=== PATIENT | female | born 1960 | race Caucasian/White ===

== ENCOUNTER 2016-04-14 11:08 | Emergency (ER) | payer SELFPAY ==
[~2016-04-14] VITALS: Ht 170.2 cm; Wt 69.6 kg
[~2016-04-14 11:08] MED LIST: ASPI325T45 PO; CITA20TA4 PO; LEVO-217 PO; LISI-526 PO; OXYSR15 PO; PEDICHW50 PO; PRLSR20 PO
[2016-04-14 11:20] VITALS: TEMP 36.6; Ht 170.2 cm; Wt 69.6 kg
[2016-04-14] MEDS ORDERED: FERR1TAB13 PO (11:44)
[2016-04-14] MEDS ORDERED: PRLSR20 PO (11:44)
[2016-04-14] MEDS ORDERED: LEVO50TA6 PO (11:44)
[2016-04-14] MEDS ORDERED: OPTIRAY 320 IV PRN (12:00)
[2016-04-14 12:35] LABS: ISTAT CREATININE 0.8 mg/dl (0.6-1.3); ISTAT HEMOGLOBIN 12.2 g/dl (12.0-16.0); ISTAT IONIZED CALCIUM 1.16 mmol/l (1.12-1.32)
--- NOTE | 2016-04-14 12:47 | DIAGNOSTIC IMAGING REPORT ---
CT SOFT TISSUE NECK WITH CT DOSE: 415.44 mGycm CLINICAL HISTORY: left submandibular mass TECHNIQUE: Helical images were acquired during intravenous administration of 92 cc of Optiray 320. COMPARISON STUDY: None. FINDINGS: The visualized portions of the lung apices are unremarkable. No thyroid masses are visualized. No salivary gland masses are visualized. There is a 17 mm left sided retromandibular mass, deforming the left submandibular gland. This likely represents an enlarged lymph node. There are additional prominent jugular digastric lymph nodes on the left, as well as a mildly prominent left-sided submandibular lymph node. There are no fluid collections suspicious for abscess. There is no evidence of airway compromise. No mucosal space masses are visualized. There is reflux of contrast into the left internal jugular vein. There is extensive epidural and left neck collateral flow. IMPRESSION: 1. 17 mm left-sided retromandibular mass deforming the left sublenticular gland. This likely represents an enlarged lymph node. If the patient has clinical signs and symptoms consistent with infection, then reimaging subsequent antibiotic therapy would seem reasonable. In the absence of infective symptomatology, referral for fine-needle aspiration biopsy should be considered. Electronically signed by: Irvin Willingham M.D. 04/14/2016 12:45 PM Dictated Date/Time: 04/14/2016 12:38 PM
--- NOTE | 2016-04-14 13:07 | EMERGENCY ROOM VISIT NOTE ---
History First contact with patient: 11:31 Chief Complaint: NECK PAIN Stated Complaint: LUMP ON LEFT SIDE OF NECK History of Present Illness The patient is a 55 year old female who presents to the Emergency Room with complaints of a lump under her left mandible. The patient states that she noticed it last night. She states it does not hurt unless she presses on it. The patient was a pain management today and the doctor there told her that she needed to get it checked out today. Therefore she came directly to the emergency room. The patient denies any tooth pain. The patient states she does not have any lower teeth. She even kept her dentures out today thinking it might be due to her gums being irritated. The patient denies any pain or irritation of her gums. The patient denies any pain with eating. The patient denies any redness to the area. The patient denies any other palpable lumps in the neck region. The patient denies any recent upper respiratory symptoms of cough, sore throat, ear pain or head congestion Review of Systems 10 system review was performed and was negative unless stated otherwise history of present illness. Past Medical/Surgical History Medical Problems: (1) Urinary tract infection Surgical Problems: (1) Gastric bypass status for obesity Family History No pertinent family history Social History Smoking Status: Current Every Day Smoker Alcohol Use: none Marital Status: single Occupation Status: employed Current/Historical Medications Scheduled Citalopram Hydrobromide (Citalopram Hydrobromide), 20 MG PO DAILY Ferrous Sulfate (Kp Ferrous Sulfate), 325 MG PO DAILY Levothyroxine Sodium (Levothyroxine Sodium), 50 MCG PO DAILY Lisinopril (Prinivil), 30 MG PO DAILY Omeprazole (Prilosec), 20 MG PO DAILY Oxycodone HCl (Oxycontin), 15 MG PO TID Pediatric Multiple Vitamin W/ (Flintstones Chewable), 1 TAB PO BID Scheduled PRN Aspirin (Aspirin), 325 MG PO Q4H PRN for Headache or Pain Allergies Coded Allergies: No Known Allergies (Verified , 04/14/16) Physical Exam Vital Signs Date Time Temp Pulse Resp B/P Pulse Ox O2 Delivery O2 Flow Rate FiO2 04/14/16 11:20 36.6 90 17 145/85 98 Room Air Physical Exam PHYSICAL EXAM: Vital Signs were reviewed: Temperature 36.6, blood pressure 145/ 85, pulse 90 respiratory rate 17 Reviewed Nurse's notes and agree. Oxygen saturation is 98 % on room air which is normal . GENERAL: 55-year-old female appears in no acute distress. MENTAL STATUS: Alert, oriented, coherent. EARS: Canals clear. TMs good light reflex, no erythema or fluid level noted. NOSE: Nasal mucosa without erythema or engorgement. PHARYNX no erythema, no edema noted. No exudate noted. Airway is adequate. MOUTH: Bottom teeth are all absent. Gingiva without erythema or edema. NECK: Supple, there is a tender 1.5 cm nodule in the left submandibular region which is tender to palpation. No other nodes are noted. No erythema noted. LUNGS: Clear to auscultation without wheezes rales or rhonchi. CARDIAC: Regular rate and rhythm without murmur. SKIN: No rashes noted. Medical Decision & Procedures ER Provider Diagnostic Interpretation: CT SOFT TISSUE NECK WITH CT DOSE: 415.44 mGycm CLINICAL HISTORY: left submandibular mass TECHNIQUE: Helical images were acquired during intravenous administration of 92 cc of Optiray 320. COMPARISON STUDY: None. FINDINGS: The visualized portions of the lung apices are unremarkable. No thyroid masses are visualized. No salivary gland masses are visualized. There is a 17 mm left sided retromandibular mass, deforming the left submandibular gland. This likely represents an enlarged lymph node. There are additional prominent jugular digastric lymph nodes on the left, as well as a mildly prominent left-sided submandibular lymph node. There are no fluid collections suspicious for abscess. There is no evidence of airway compromise. No mucosal space masses are visualized. There is reflux of contrast into the left internal jugular vein. There is extensive epidural and left neck collateral flow. IMPRESSION: 1. 17 mm left-sided retromandibular mass deforming the left sublenticular gland. This likely represents an enlarged lymph node. If the patient has clinical signs and symptoms consistent with infection, then reimaging subsequent antibiotic therapy would seem reasonable. In the absence of infective symptomatology, referral for fine-needle aspiration biopsy should be considered. Electronically signed by: Irvin Willingham M.D. 04/14/2016 12:45 PM Dictated Date/Time: 04/14/2016 12:38 PM Laboratory Results Test 04/14/16 12:23 Bedside Hemoglobin 12.2 g/dl (12.0-16.0) Bedside Hematocrit 36 % (37-47) Bedside Sodium 141 mEq/L (135-144) Bedside Potassium 3.6 mEq/L (3.3-5.0) Bedside Chloride 104 mEq/L (101-112) Bedside Total CO2 26 mEq/l (24-31) Anion Gap 16.0 mmol/L (16-25) Bedside Blood Urea Nitrogen 9 mg/dl (7-18) Bedside Creatinine 0.8 mg/dl (0.6-1.3) Bedside Glucose (other) 94 mg/dl (70-99) Bedside Ionized Calcium (Marguerite) 1.16 mmol/l (1.12-1.32) ED Course The patient was evaluated. I stats were obtained which were normal. The patient was therefore sent for a CT of the neck with and without IV contrast. CT was interpreted by the radiologist as above with a 17 mm mass in the left submandibular area most likely representing a lymph node but a fine-needle aspiration was recommended. The patient was informed of the findings. The patient was discharged home in stable condition. Medical Decision Differential diagnosis include blocked salivary gland, enlarged lymph node, neoplasm Impression Primary Impression: lump left submandibular region Departure Information Dispostion Home / Self-Care Condition GOOD Referrals Lelo Ramirez M.D. (PCP) Forms HOME CARE DOCUMENTATION FORM, IMPORTANT VISIT INFORMATION, WORK / SCHOOL INSTRUCTIONS Patient Instructions My [employer] [facility] Additional Instructions Try not to palpate the area. Follow-up with your family doctor to discuss further evaluation treatment. Possibly watch and wait or referral for fine- needle aspiration.
[2016-04-14 13:21] VITALS: BP 149/87; PULSE 66; O2SAT 95
== END 2016-04-14 13:21 | disposition home or self-care (01) ==
LOC: C.EDB 11:10 → C.EDC 13:21
DX: R22.0 Localized swelling, mass and lump, head (principal); F17.210 Nicotine dependence, cigarettes, uncomplicated; Z79.899 Other long term (current) drug therapy; Z98.84 Bariatric surgery status

== ENCOUNTER 2017-03-29 00:25 | Emergency (ER) | payer SELFPAY ==
[~2017-03-29] VITALS: Ht 170.2 cm; Wt 72.1 kg
[~2017-03-29 00:25] MED LIST changes: +ASPECOTC PO; -ASPI325T45 PO; -CITA20TA4 PO; +FERR1TAB13 PO; -LEVO-217 PO; -LISI-526 PO; -PEDICHW50 PO; -PRLSR20 PO
[2017-03-29 00:36] VITALS: TEMP 36.9; Ht 170.2 cm; Wt 72.1 kg
[2017-03-29] MEDS ORDERED: OXYC-737 PO (03:49)
[2017-03-29 04:37] VITALS: BP 124/71; PULSE 67; O2SAT 98
--- NOTE | 2017-03-29 06:44 | EMERGENCY ROOM VISIT NOTE ---
History First contact with patient: 00:56 Chief Complaint: FALL Stated Complaint: RIGHT HIP - LEFT LEG - LEFT KNEE - LOWER BACK PAIN History of Present Illness The patient is a 56 year old female who presents to the Emergency Room with complaints of fall twice this week. Patient says she slipped and fell. she describes the pain as aching, ranging in severity 5 out of 10 worse with movement and better with rest. It does not radiate. Patient complains of Low back pain, bilateral hip pain, left middle finger pain and left knee pain. Patient is able to ambulate. She's had a right hip replacement. She follows with orthopedics in [place]. Patient is on chronic narcotics. Patient denies head injury, neck pain, chest pain, dyspnea, abdominal pain, numbness, tingling, inability to walk, loss of bowel or bladder control, saddle anesthesia , fever, chills, drug use. Review of Systems See HPI for pertinent positives & negatives. A total of 10 systems reviewed and were otherwise negative. Past Medical/Surgical History Medical Problems: (1) Urinary tract infection Surgical Problems: (1) Gastric bypass status for obesity Hip surgery, GERD, hypothyroidism Family History No pertinent family history Social History Smoking Status: Current Every Day Smoker Alcohol Use: none Marital Status: single Occupation Status: employed Current/Historical Medications Scheduled Citalopram Hydrobromide (Citalopram Hydrobromide), 20 MG PO DAILY Ferrous Sulfate (Slow Fe), 1 TAB PO DAILY Levothyroxine Sodium (Levothyroxine Sodium), 50 MCG PO DAILY Lisinopril (Prinivil), 30 MG PO DAILY Omeprazole (Prilosec), 20 MG PO BID Oxycodone HCl (Oxycontin), 15 MG PO BID Pediatric Multiple Vitamin W/ (Flintstones Chewable), 1 TAB PO BID Scheduled PRN Oxycodone Immediate Rel Tab (Roxicodone Ir), 10 MG PO QID PRN for Pain Physical Exam Vital Signs Date Time Temp Pulse Resp B/P (MAP) Pulse Ox O2 Delivery O2 Flow Rate FiO2 03/29/17 04:37 67 16 124/71 98 03/29/17 03:46 73 16 127/70 98 Room Air 03/29/17 02:12 75 16 130/70 99 Room Air 03/29/17 00:36 36.9 101 18 145/84 96 Room Air Physical Exam PHYSICAL EXAM: VITALS: Vitals are noted on the nurse's note and reviewed by myself. Vital signs stable. GENERAL: Pleasant female ambulating without difficulties, in no acute distress, nondiaphoretic, well-developed well-nourished. SKIN: Left knee contusion. The skin was without obvious lacerations or abrasions. Capillary reflex less than 2 seconds. HEAD: Normocephalic atraumatic. EARS: External auditory canals clear, tympanic membranes pearly robertson without erythema or effusion bilaterally. No hemotympanums. No mahan sign. No mastoid tenderness. EYES: Pupils equal round and reactive to light and accommodation. Conjunctivae without injection, sclerae without icterus. Extraocular movements intact. NOSE: Patent, turbinates without inflammation or discharge. MOUTH: Mucous membranes moist. Pharynx without erythema or exudate. Uvula midline. Airway patent. Tongue does not deviate. NECK: Supple without nuchal rigidity. Cervical spine is nontender. Full range of motion of the neck without tenderness. No JVD. HEART: Regular rate and rhythm LUNGS: Clear to auscultation bilaterally without wheezes, rales or rhonchi. No dullness to percussion. No retractions or accessory muscle use. No chest wall tenderness. ABDOMEN: Positive bowel sounds x 4. Normal tympanic percussion. Soft, nontender, without masses or organomegaly. No guarding or rebound tenderness. MUSCULOSKELETAL: No tenderness of the thoracic spine. Lumbar spinal tenderness without step-offs. No tenderness with pelvic rocking. Bilateral hips minimally tender to palpation with full range of motion. Left middle finger minimally tender to palpation diffusely without localized pain. Left knee minimally tender to palpation with full range of motion. Full range of motion without tenderness to palpation in all other extremities. Normal gait. Strength 5/5 throughout. NEURO: Patient was alert and oriented to person place and time. Normal sensation to light and sharp touch. No focal neurological deficits. Medical Decision & Procedures ED Course Prior records/ancillary studies reviewed. Triage Nursing notes reviewed. The patient's history was concerning for traumatic injury Differential diagnosis: Etiologies such as fracture, dislocation, intra-abdominal, pneumothorax, intrathoracic , intracranial, neurologic, as well as other traumatic pathologies were entertained. Physical examination findings: As above. The patients vitals were stable. ER treatment provided: Ice pack On reassessment the patient felt better. Vital signs were stable. Diagnostic interpretation by me: Imaging studies: Finger x-ray with no acute fracture, dislocation or effusion per my interpretation Knee x-ray with no acute fracture consultation or effusion per my interpretation Pelvis with bilateral hips concerning for possible left acetabular fracture so further imaging was ordered per my interpretation CT of the L-spine and pelvis were reviewed and read by stat radiology and negative for acute fracture This appears to be consistent with fall with multiple contusions without fracture. Patient is advised follow-up orthopedics in a few days or here in the ER sooner for severe pain, numbness, tingling, inability to walk, worsening signs or symptoms or as needed. Patient ambulated out of the ER without difficulties. She is well-appearing. She did not have acute abdomen on exam. No other injuries were noted. By the evaluation outlined above emergent etiologies such as fracture, dislocation, intra-abdominal, pneumothorax, pulmonary contusion, hemothorax, intracranial, neurologic,as well as others were deemed relatively unlikely. The pt informed about the findings as listed above. All questions were answered and pleased with the treatment. Return instructions were outlined and the patient was discharged in stable condition. Referral: The patient was referred to family and orthopedics for follow-up in 2 to 3 days for a recheck of the current condition. Case reviewed with my attending The chart was completed utilizing [employer] Speech voice recognition software. Grammatical errors, random word insertions, pronoun errors, and incomplete sentences are an occassional consequence of this system due to software limitations, ambient noise, and hardware issues. Any formal questions or concerns about the content, text, or information contained within the body of this dictation should be directly addressed to the physician training and development assistant for clarification. Medical Decision As above Medication Reconcilliation Current Medication List: was personally reviewed by me Blood Pressure Screening Patient's blood pressure: Normal blood pressure Impression Primary Impression: Left knee pain Additional Impressions: Finger pain, left Hip pain, bilateral Lumbar strain Fall Departure Information Dispostion Home / Self-Care Condition GOOD Forms HOME CARE DOCUMENTATION FORM, IMPORTANT VISIT INFORMATION Patient Instructions My [facility] Additional Instructions Ibuprofen(Motrin, Advil) may be used for fever or pain. Use 600mg every six hours as needed. Take with food. Avoid using more than 2400mg in a 24 hour period. Do not use 2400mg per day for more than three consecutive days without physician direction. Prolonged inappropriate use can lead to stomach upset or ulcers. This medication can be taken if you need to drive, work, or perform activities which may be dangerous when taking narcotic pain medication. (AND/OR) Acetaminophen(Tylenol) may be used for fever or pain. Use 1000mg every six hours as needed. Avoid using more than 3000mg in a 24 hour period. This medication can be taken if you need to drive, work, or perform activities which may be dangerous when taking narcotic pain medication. Ice compresses for 20 minutes at a time four times daily for 2-3 days. Rest and elevate your injury. Continue current medications. Return to the ER immediately for any numbness, tingling, severe pain, extreme swelling in the extremity or as needed. Call your Orthopedics in 3-5 days as symptoms persist to arrange follow up for your injury. Problem Qualifiers Primary Impression: Left knee pain Chronicity: acute Qualified Codes: M25.562 - Pain in left knee
--- NOTE | 2017-03-29 09:12 | DIAGNOSTIC IMAGING REPORT ---
CT SCAN OF THE LUMBAR SPINE WITHOUT IV CONTRAST CLINICAL HISTORY: Fall with low back pain. COMPARISON STUDY: Abdominal CT dated 06/15/2013. TECHNIQUE: CT scan of lumbar spine is performed from the lower thoracic spine to the sacrum. Images reviewed in the axial, sagittal, and coronal planes. IV contrast was not administered for this examination. A dose lowering technique was utilized adhering to the principles of ALARA. CT DOSE: 1478.45 mGy.cm FINDINGS: The skeletal structures appear osteopenic. There is no evidence of fracture or malalignment involving the lumbar spine. Vertebral body height and alignment are maintained. The transverse and spinous processes are intact. There is no evidence of spondylolysis. No lytic or blastic lesion is seen. Mild facet arthropathy is seen in the lower lumbar region. There is moderate disc space narrowing with vacuum phenomenon seen at L4-L5. Mild disc space narrowing is seen at the remaining lumbar levels. Tiny anterior osteophytes are seen throughout. There is no evidence of large disc herniation. Tiny disc bulges are suggested at L2-L3, L3-L4, L4-L5, and L5-S1. The visualized sacrum and bony pelvis appear intact. The paraspinous soft tissues are within normal limits. Postoperative change is noted in the stomach and small bowel. A 1.9 cm right adrenal nodule meets CT criteria for a fat-containing adenoma. IMPRESSION: 1. No acute bony abnormality is seen involving the lumbar spine. 2. Osteopenia and mild spondylotic change as above. Dictated: 03/29/2017 8:15 AM Transcribed: 03/29/2017 9:12 AM Cindy Electronically signed by: Alfredo Mendiola M.D. 03/29/2017 9:17 AM Dictated Date/Time: 03/29/2017 8:15 AM
--- NOTE | 2017-03-29 09:14 | DIAGNOSTIC IMAGING REPORT ---
CT SCAN OF THE BONY PELVIS WITHOUT IV CONTRAST CLINICAL HISTORY: Fall. Bilateral hip pain. COMPARISON STUDY: Pelvic CT dated 12/19/2015. TECHNIQUE: CT scan of the bony pelvis is performed from the pelvic inlet to the proximal femora. Images reviewed in the axial, sagittal, and coronal planes. IV contrast was not administered for this examination. The examination is degraded by streak artifact from a right hip arthroplasty. A dose lowering technique was utilized adhering to the principles of ALARA. FINDINGS: The skeletal structures are osteopenic. No fracture is seen involving the hips or bony pelvis. Mild spondylotic change is noted in the lower lumbar spine. A right hip arthroplasty is in place. Mild arthritic change is seen in the left hip. The sacroiliac joints appear maintained. A bone island is incidentally noted in the right iliac wing. No destructive osseous lesion is identified. The regional musculature is normal and symmetric. There is contusion with a 2.0 cm hematoma identified in the subcutaneous fat overlying the left hip. This is best seen on image 202. Mild contusion is also suggested overlying the right hip. The bladder is normal as visualized. The uterus is surgically absent. The imaged bowel loops are normal in caliber. No free fluid is seen in the pelvis. A ventral hernia contains a nonobstructed loop of small bowel. IMPRESSION: 1. No fracture is identified involving the hips or bony pelvis. 2. Contusion and a small subcutaneous soft tissue hematoma is seen overlying the left hip. 3. A right hip arthroplasty is in near-anatomic alignment. 4. There is a ventral hernia which contains a nonobstructed segment of small bowel. 5. Additional findings as above. Dictated: 03/29/2017 8:29 AM Transcribed: 03/29/2017 9:14 AM Cindy Electronically signed by: Alfredo Mendiola M.D. 03/29/2017 9:19 AM Dictated Date/Time: 03/29/2017 8:29 AM
--- NOTE | 2017-03-29 10:11 | DIAGNOSTIC IMAGING REPORT ---
SINGLE VIEW PELVIS; 2 VIEWS LEFT HIP; 2 VIEWS RIGHT HIP CLINICAL HISTORY: Fall with hip pain. FINDINGS: An AP view of the pelvis with AP and frog-leg views of the right and left hips are correlated with pelvic CT dated 12/19/2015. The skeletal structures are osteopenic. No fracture is identified involving the hips or bony pelvis. A right hip arthroplasty is in near-anatomic alignment. At least 3 cortical lag screw transfix the acetabular cup. No periprosthetic lucency is identified. Mild to moderate arthritic change and joint space narrowing seen in left hip. Minimal sclerotic change is noted in the right sacroiliac joint. Lumbosacral spondylosis is partially imaged. The overlying soft tissues are within normal limits. The visualized bowel loops are normal in caliber. IMPRESSION: There is no radiographic evidence of fracture involving the hips or bony pelvis. Electronically signed by: Alfredo Mendiola M.D. 03/29/2017 10:10 AM Dictated Date/Time: 03/29/2017 10:08 AM
--- NOTE | 2017-03-29 10:20 | DIAGNOSTIC IMAGING REPORT ---
LEFT KNEE 3 VIEWS CLINICAL HISTORY: Fall with left knee pain. FINDINGS: AP, crosstable lateral, and sunrise views of the left knee are obtained. No prior studies are available for comparison at the time of dictation. The skeletal structures are well mineralized. No fracture is seen. There is mild to moderate degenerative joint space narrowing seen in the medial compartment. Only minimal narrowing is present in the lateral and patellofemoral compartments. There are tiny marginal osteophytes in a superior patellar enthesophyte. An osteochondroma arises from the medial aspect of the tibial plateau. There is no joint effusion. The overlying soft tissues are within normal limits. IMPRESSION: 1. Mild arthritic change as above. No acute bony abnormality is seen. 2. An osteochondroma arises from the medial tibial plateau. Electronically signed by: Alfredo Mendiola M.D. 03/29/2017 10:19 AM Dictated Date/Time: 03/29/2017 10:17 AM
--- NOTE | 2017-03-29 10:22 | DIAGNOSTIC IMAGING REPORT ---
LEFT THIRD FINGER 3 VIEWS CLINICAL HISTORY: Fall with third finger pain. FINDINGS: 3 views of the left third finger are obtained. No prior studies are available for comparison at the time of dictation. The skeletal structures are well mineralized. No fracture is identified in the left third finger. The metacarpophalangeal and interphalangeal joints appear maintained. The overlying soft tissues are within normal limits. IMPRESSION: No acute bony abnormality is seen in the left third finger. Electronically signed by: Alfredo Mendiola M.D. 03/29/2017 10:20 AM Dictated Date/Time: 03/29/2017 10:19 AM
[2017-08-06] MEDS ORDERED: PEDICHW50 PO (01:13)
[2017-08-06] MEDS ORDERED: LISI-526 PO (01:15)
[2017-08-06] MEDS ORDERED: CITA20TA4 PO (01:17)
[2017-08-06] MEDS ORDERED: FERR142T PO (03:50)
[2017-08-06] MEDS ORDERED: LEVO50TA6 PO (11:44)
[2017-08-06] MEDS ORDERED: PRLSR20 PO (11:44)
[2017-10-20] MEDS ORDERED: OXYC-737 PO (05:18)
[2017-11-25] MEDS ORDERED: SULF800T23 PO ×2 (15:24→15:30)
[2017-11-25] MEDS ORDERED: CEPH500C PO ×2 (15:24→15:30)
== END 2017-03-29 04:38 | disposition home or self-care (01) ==
LOC: C.EDB 00:27 → C.EDC 04:38
DX: M25.562 Pain in left knee (principal); M79.645 Pain in left finger(s); M25.551 Pain in right hip; M25.552 Pain in left hip; S39.012A Strain of muscle, fascia and tendon of lower back, initial encounter; W01.0XXA Fall on same level from slipping, tripping and stumbling without subsequent striking against object, initial encounter; K21.9 Gastro-esophageal reflux disease without esophagitis; E03.9 Hypothyroidism, unspecified; F17.200 Nicotine dependence, unspecified, uncomplicated; Z87.440 Personal history of urinary (tract) infections; Z96.641 Presence of right artificial hip joint; Z98.84 Bariatric surgery status; Z79.899 Other long term (current) drug therapy

== ENCOUNTER 2017-06-15 20:21 | Emergency (ER) | payer OTHER ==
[~2017-06-15] VITALS: Ht 170.2 cm; Wt 79.4 kg
[~2017-06-15 20:21] MED LIST changes: -ASPECOTC PO; +CITA20TA4 PO; +FERR142T PO; -FERR1TAB13 PO; +LEVO50TA6 PO; +LISI-526 PO; +OXYC1TAB3 PO; +PEDICHW50 PO; +PRLSR20 PO
[2017-06-15 20:26] VITALS: BP 137/85; PULSE 68; TEMP 36.7; O2SAT 94; Ht 170.2 cm; Wt 79.4 kg
[2017-06-15] MEDS ORDERED: PRED50TA PO (20:40)
[2017-06-15] MEDS ORDERED: CLOTRIMAZOLE/BETAMETHASONE CR 15 GM TUBE EXT ONE (20:45)
--- NOTE | 2017-06-15 23:40 | EMERGENCY ROOM VISIT NOTE ---
History First contact with patient: 20:29 Chief Complaint: RASH Stated Complaint: RASH History of Present Illness The patient is a 57 year old female who presents to the Emergency Room with complaints of rash on her back that has been worsening over the past 2-3 days. The patient states that she has had this rash before, about 1 month ago, and was seen at [facility]. She was given steroids at this time, which did resolve her symptoms. She states the rash has returned and is lower than it was before. The rash is not painful. She does not have fevers or chills. No known exposures to new detergents or soaps. She does not have pain or difficulty breathing. She rates her discomfort as 0/10. Review of Systems More than 10 systems were reviewed and otherwise negative with the exception of history of present illness. Past Medical/Surgical History Medical Problems: (1) Urinary tract infection Surgical Problems: (1) Gastric bypass status for obesity Family History No pertinent family history Social History Smoking Status: Never Smoker Alcohol Use: none Marital Status: single Occupation Status: employed Current/Historical Medications Scheduled Citalopram Hydrobromide (Citalopram Hydrobromide), 20 MG PO DAILY Ferrous Sulfate (Slow Fe), 1 TAB PO DAILY Levothyroxine Sodium (Levothyroxine Sodium), 50 MCG PO DAILY Lisinopril (Prinivil), 30 MG PO DAILY Omeprazole (Prilosec), 20 MG PO BID Oxycodone HCl (Oxycontin), 15 MG PO BID Pediatric Multiple Vitamin W/ (Flintstones Chewable), 1 TAB PO BID Prednisone (Prednisone), 50 MG PO DAILY Scheduled PRN Oxycodone Immediate Rel Tab (Roxicodone Ir), 10 MG PO QID PRN for Pain Physical Exam Vital Signs Date Time Temp Pulse Resp B/P (MAP) Pulse Ox O2 Delivery O2 Flow Rate FiO2 06/15/17 20:26 36.7 68 16 137/85 94 Room Air Physical Exam VITALS: Vitals are noted on the nurse's note and reviewed by myself. Vital signs stable. GENERAL: Well-developed, well-nourished, white female, who is in no acute distress and resting comfortably. Patient is cooperative with the examination. HEART: Regular rate and rhythm without murmurs gallops or rubs. LUNGS: Clear to auscultation bilaterally without wheezes, rales or rhonchi. No retractions or accessory muscle use. NEURO: Patient was alert and oriented to person place and time. CN II through XII grossly intact. SKIN: The skin was with a very small erythematous patch on the left side low back just above the left buttocks. There is a very scant amount of scaling over top this but no obvious abscess or distinct infection. No vesicles noted. Medical Decision & Procedures ED Course Physical exam and history were performed. Nursing notes, EMR, and Medication List were personally reviewed. Patient appears to have a rash on her left-sided low back. The patient is evidently had this in the past. It was steroid responsive in the past, and I will start her on a short course of steroids. Additionally I will start her on Lotrimin and have her follow with her primary care physician. The patient may need to see dermatology if this persists. She was otherwise invited back to the ER with any new, worsening, or concerning symptoms. The chart was completed utilizing [employer] Speech Voice Recognition Software. Grammatical errors, random word insertions, pronoun errors, and incomplete sentences are an occasional consequence of this system due to software limitations, ambient noise, and hardware issues. Any formal questions or concerns about the content, text, or information contained within the body of this dictation should be directly addressed to the provider for clarification. . Medical Decision Differential diagnosis: Etiologies such as contact dermatitis, viral exanthem, urticaria, allergic reaction, Stern-Man syndrome, toxic epidermal necrolysis, erythema multiforme, cellulitis, scabies, HSV, varicella, zoster, eczema, staph scalded skin syndrome, fungal infection, as well as others were entertained. Impression Primary Impression: Rash and nonspecific skin eruption Departure Information Dispostion Home / Self-Care Condition GOOD Prescriptions Prednisone (Prednisone) 50 Mg Tab 50 MG PO DAILY for 4 Days, #4 TAB Prov: Terrell Rivera PA-C 06/15/17 Forms HOME CARE DOCUMENTATION FORM, IMPORTANT VISIT INFORMATION Patient Instructions My [facility] Additional Instructions You were seen and evaluated today on an emergency basis only. This is not a substitute for, or an effort to provide, complete comprehensive medical care. It is not possible to recognize and treat all injuries or illnesses in a single emergency department visit. For this reason it is recommended that you followup with your primary care physician for ongoing care and evaluation. Take prednisone as prescribed Apply topical Lotrimin ointment 2-3 times daily for the next 2 weeks. This medication is readily available [id number]. You are welcome to return to the emergency department anytime with new, worsening, or concerning symptoms.
== END 2017-06-15 20:52 | disposition home or self-care (01) ==
LOC: C.EDB 20:22 → C.EDD 20:52
DX: R21 Rash and other nonspecific skin eruption (principal); Z87.440 Personal history of urinary (tract) infections; Z98.84 Bariatric surgery status; Z79.899 Other long term (current) drug therapy

== ENCOUNTER 2017-07-04 19:11 | Emergency (ER) | payer OTHER ==
[~2017-07-04] VITALS: Ht 170.2 cm; Wt 84.2 kg
[2017-07-04 19:14] VITALS: TEMP 36.8; Ht 170.2 cm; Wt 84.2 kg
[2017-07-04] MEDS ORDERED: CLOTRIMAZOLE/BETAMETHASONE CR 15 GM TUBE EXT STA (19:30)
[2017-07-04] MEDS ORDERED: METH4PAK PO (19:32)
[2017-07-04 20:00] VITALS: BP 134/80; PULSE 76; O2SAT 99
--- NOTE | 2017-07-08 14:28 | EMERGENCY ROOM VISIT NOTE ---
History Report prepared by Estela: Ernst Clay Under the Supervision of: Dr. Huy Vazquez M.D. First contact with patient: 19:18 Chief Complaint: RASH Stated Complaint: RASH ON BACK,BUTT,UNDER L ARM,BOTH FEET AND LEGS History of Present Illness The patient is a 57 year old female who presents to the Emergency Room with complaints of a spreading/worsening rash across her back/trunk that initially onset 3 weeks ago. The patient states that she was here in the emergency department 2.5 weeks ago for the rash that had began a few day prior. The patient states that she was given a steroid and a cream and the rash went away. The rash has now returned and is spreading. There is a pain associated with the rash that the patient describes as "bees stinging me." This pain is most prevalent under her left arm. The rash does itch. She denies any fever or shortness of breath Source of History: patient Onset: 3 weeks ago Position: back (trunk) Quality: other (Rash, Bees stinging under her left arm) Timing: worsening (spreading) Associated Symptoms: No chest pain, No SOB Review of Systems See HPI for pertinent positives & negatives. A total of 10 systems reviewed and were otherwise negative. Past Medical & Surgical Medical Problems: (1) Urinary tract infection Surgical Problems: (1) Gastric bypass status for obesity Old medical records were reviewed. Nurse's notes were reviewed and I agree with. Family History No pertinent family history Social History Smoking Status: Current Every Day Smoker Alcohol Use: none Marital Status: single Occupation Status: employed Current/Historical Medications Scheduled Citalopram Hydrobromide (Citalopram Hydrobromide), 20 MG PO DAILY Ferrous Sulfate (Slow Fe), 1 TAB PO DAILY Levothyroxine Sodium (Levothyroxine Sodium), 50 MCG PO DAILY Lisinopril (Prinivil), 30 MG PO DAILY Methylprednisolone (Medrol Dosepak), 0 PO DAILY Omeprazole (Prilosec), 20 MG PO BID Pediatric Multiple Vitamin W/ (Flintstones Chewable), 1 TAB PO BID Allergies Coded Allergies: No Known Allergies (Verified , 07/04/17) Physical Exam Vital Signs Date Time Temp Pulse Resp B/P (MAP) Pulse Ox O2 Delivery O2 Flow Rate FiO2 07/04/17 20:00 76 18 134/80 99 4/8/18 19:14 36.8 103 18 165/99 97 Room Air Physical Exam General: Non-ill appearing middle age female in no acute distress. Speaking and swallowing own secretions without difficulty. HEENT: Normal cephalic atraumatic. Pupils are equal round and reactive to light. Extraocular movements are intact. Oropharynx is pink with moist mucous membranes. No swelling of the mouth lips or tongue. Neck: Supple with a midline trachea. No meningeal signs or stiffness, no JVD or bruits. No Stridor. Chest: Clear to auscultation bilaterally. No wheezes or rhonchi. No increased work of breathing. Heart: regular rate and rhythm. Abdomen: Soft nontender, nondistended without rebound guarding or rigidity. Extremities: No cyanosis clubbing or edema. No calf tenderness or assymetry Spine/Back. Non tender to palpation. No CVA tenderness Skin: There is a faint rash on her back that is raised and palpable. There are small spots on her left armpit, non-vesicular appearing rash. There is no involvement of the mucous membrane, there is a callous on the left foot. Neurologic exam: Cranial nerves two through 12 are intact. Motor and sensation are intact and symmetrical throughout. Medical Decision & Procedures Medications Administered Medications (Trade) Dose Ordered Sig/Elsa Route Start Time Stop Time Status Last Admin Dose Admin Prednisone (PredniSONE TAB) 60 mg NOW STAT PO 07/04/17 19:29 07/04/17 19:30 DC 07/04/17 19:49 60 MG Betamethasone/ Clotrimazole (Lotrisone Crm) 1 appln ONE STAT EXT 07/04/17 19:30 07/04/17 19:31 DC 07/04/17 19:57 1 APPLN ED Course 192: Past medical records reviewed. The patient was evaluated in room C11B, and a complete history and physical examination were performed. 1928: Ordered Prednisone 60 mg PO, Lortisone Cream 1 application. 1931: After discussion with the patient she is in agreement with the treatment plan. She will be discharged home with cream and a steroid. Medical Decision Differential diagnosis includes; rash and allergic reaction. This patient comes in complaining of a rash. She has no evidence of palms and soles or mucous membranes involvement. It is not vasculitic-appearing. she has had this for a month and he gets better with prednisone appears mostly on her back. I will start her back on prednisone and gave her some cream with antifungal and steroid properties that she can use topically on small spots. I recommend she follow-up with her regular doctor and me need to get in with a septic technician. There is nothing to suggest infection or sepsis at this point. She will be discharged home. She is nothing to suggest anaphylaxis or airway involvement. She was happy to plan and discharged to home. Impression Primary Impression: Rash Scribe Attestation The scribe's documentation has been prepared under my direction and personally reviewed by me in its entirety. I confirm that the note above accurately reflects all work, treatment, procedures, and medical decision making performed by me. Departure Information Dispostion Home / Self-Care Prescriptions Methylprednisolone (MEDROL DOSEPAK) 4 Mg Deshawn 0 PO DAILY, #1 PKT Prov: Huy Vazquez M.D. 07/04/17 Referrals Lelo Ramirez M.D. (PCP) Forms HOME CARE DOCUMENTATION FORM, IMPORTANT VISIT INFORMATION, WORK / SCHOOL INSTRUCTIONS Patient Instructions My [facility] Additional Instructions Rest. Use Medrol Dosepak as directedsteroid taper May use Lotrisone isolated spots twice a day May use Benadryl or another [id number] antihistamine but be careful these can make you drowsy and do not take before drinking, driving, working Return if: worsening of symptoms, fever or chills, shortness of breath, any new problems or concerns Up with your doctor this week for recheck
== END 2017-07-04 20:02 | disposition home or self-care (01) ==
LOC: C.EDB 19:13 → C.EDC 20:02
DX: R21 Rash and other nonspecific skin eruption (principal); Z87.440 Personal history of urinary (tract) infections; Z98.84 Bariatric surgery status; E66.9 Obesity, unspecified; F17.210 Nicotine dependence, cigarettes, uncomplicated; Z79.899 Other long term (current) drug therapy

== ENCOUNTER 2017-07-14 15:11 | Emergency (ER) | payer OTHER ==
[~2017-07-14] VITALS: Ht 170.2 cm; Wt 80.4 kg
[~2017-07-14 15:11] MED LIST changes: +METH4PAK PO; -OXYC1TAB3 PO; -OXYSR15 PO
[2017-07-14 15:15] VITALS: TEMP 36.7; Ht 170.2 cm; Wt 80.4 kg
[2017-07-14] MEDS ORDERED: OXYCODONE HCL IR 5 MG TAB (IMMEDIATE RELEASE) PO STA (15:59)
[2017-07-14] MEDS ORDERED: ALBUT/IPRATROP 3MG/0.5MG NEB 3 ML VIAL INH STA (15:59)
[2017-07-14] MEDS ORDERED: IBUPROFEN 600 MG TAB PO STA (16:04)
[2017-07-14] MEDS ORDERED: CLONIDINE HCL 0.3 MG/24 HR TRANSDERM SYS TD STA (16:04)
[2017-07-14] MEDS ORDERED: LIDODERM (LIDOCAINE) PATCH 5% TD STA (16:04)
[2017-07-14] MEDS ORDERED: OPTIRAY 320 IV PRN (16:15)
--- NOTE | 2017-07-14 16:29 | DIAGNOSTIC IMAGING REPORT ---
CHEST ONE VIEW PORTABLE CLINICAL HISTORY: Shortness of breath COMPARISON STUDY: 06/15/2013 FINDINGS: The cardiac and mediastinal contours are normal. There is no evidence of focal pulmonary consolidation. There is no evidence of failure. No pleural effusions are visualized.[ IMPRESSION: No active disease in the chest. Electronically signed by: Irvin Willingham M.D. 07/14/2017 4:28 PM Dictated Date/Time: 07/14/2017 4:27 PM
[2017-07-14 16:35] LABS: BASO % 0.7 %; BASO ABS # 0.06 K/uL (0-0.2); EOS % 1.9 %; EOS ABS # 0.15 K/uL (0-0.5); HEMATOCRIT 43.2 % (37-47); HEMOGLOBIN 14.5 g/dL (12.0-16.0); IG# 0.03 K/uL (0.00-0.02); LYMPH % 30.1 %; LYMPH ABS # 2.42 K/uL (1.2-3.4); MEAN CELL VOLUME 94.5 fL (80-100); MEAN CORPUSCULAR HEMOGLOBIN 31.7 pg (25-34); MEAN CORPUSCULAR HGB CONC 33.6 g/dl (32-36); MEAN PLATELET VOLUME 9.2 fL (7.4-10.4); MONO % 12.4 %; NEUT % 54.5 %; NEUT ABS # 4.39 K/uL (1.4-6.5); PLATELET COUNT 280 K/uL (130-400); RED CELL DISTRIBUTION WIDTH CV 14.5 % (11.5-14.5); RED CELL DISTRIBUTION WIDTH SD 48.9 fL (36.4-46.3); WHITE BLOOD COUNT 8.05 K/uL (4.8-10.8)
--- NOTE | 2017-07-14 16:52 | EMERGENCY ROOM VISIT NOTE ---
History Report prepared by Estela: Felicia Esposito Under the Supervision of: Dr. Destin Preston M.D. First contact with patient: 15:42 Chief Complaint: PAIN (GENERALIZED) Stated Complaint: SEVERE PHYSICAL PAIN, EPSYCHOLOGIC ISSUES History of Present Illness The patient is a 57 year old female who presents to the Emergency Room with complaints of persistent generalized pain that began this morning. She reports that she has been experiencing back and neck pain, noting she has been getting a rash throughout her body that comes and goes. The patient notes swelling of her lymph nodes, which has been causing her neck discomfort. She states that today she had an episode of withdraw from her pain medication which she stopped taking 2 days ago, noting that she is no longer able to get any from her pain management clinic. She denies any homicidal/suicidal thoughts or ideations. Source of History: patient Onset: today Position: neck, back Quality: other (generalized pain) Timing: other (persistent) Note: Associated symptoms includes: swelling of lymph nodes causing neck discomfort and withdraw from pain medication. Denies any: homicidal/suicidal thoughts or ideations. Review of Systems See HPI for pertinent positives & negatives. A total of 10 systems reviewed and were otherwise negative. Past Medical & Surgical Medical Problems: (1) Urinary tract infection Surgical Problems: (1) Gastric bypass status for obesity Family History No pertinent family history Social History Smoking Status: Current Every Day Smoker Smokeless Tobacco Use: Unknown Alcohol Use: none Drug Use: none Marital Status: single Housing Status: lives with family Occupation Status: employed Current/Historical Medications Scheduled Citalopram Hydrobromide (Citalopram Hydrobromide), 20 MG PO DAILY Ferrous Sulfate (Slow Fe), 142 MG PO DAILY Levothyroxine Sodium (Levothyroxine Sodium), 50 MCG PO DAILY Lisinopril (Prinivil), 30 MG PO DAILY Omeprazole (Prilosec), 20 MG PO BID Pediatric Multiple Vitamin W/ (Flintstones Chewable), 1 TAB PO BID Allergies Coded Allergies: No Known Allergies (Verified , 07/04/17) Physical Exam Vital Signs Date Time Temp Pulse Resp B/P (MAP) Pulse Ox O2 Delivery O2 Flow Rate FiO2 07/14/17 18:17 79 16 122/68 94 07/14/17 16:49 91 17 138/79 95 Room Air 07/14/17 15:15 36.7 101 18 149/87 94 Room Air Physical Exam GENERAL: Awake, alert, well-appearing, in no acute distress HENT: Normocephalic, atraumatic. Oropharynx unremarkable. EYES: Normal conjunctiva. Sclera non-icteric. NECK: Supple. No nuchal rigidity. FROM. No JVD. RESPIRATORY: mild wheezes at bases. CARDIAC: Regular rate, normal rhythm. Extremities warm and well perfused. Pulses equal. ABDOMEN: Soft, non-distended. No tenderness to palpation. No rebound or guarding. No masses. RECTAL: Deferred. MUSCULOSKELETAL: Chest examination reveals no tenderness. The back is symmetrical on inspection without obvious abnormality. There is no CVA tenderness to palpation. No joint edema. LOWER EXTREMITIES: Calves are equal size bilaterally and non-tender. No edema. No discoloration. NEURO: Normal sensorium. No sensory or motor deficits noted. SKIN: No rash or jaundice noted. Medical Decision & Procedures ER Provider Diagnostic Interpretation: Radiology results as stated below per my review and radiologist interpretation: CHEST ONE VIEW PORTABLE CLINICAL HISTORY: Shortness of breath COMPARISON STUDY: 06/15/2013 FINDINGS: The cardiac and mediastinal contours are normal. There is no evidence of focal pulmonary consolidation. There is no evidence of failure. No pleural effusions are visualized.[ IMPRESSION: No active disease in the chest. Electronically signed by: Irvin Willingham M.D. 07/14/2017 4:28 PM Dictated Date/Time: 07/14/2017 4:27 PM SOFT TISSUE NECK WITH CLINICAL HISTORY: 57 years-old Female presenting with Pt c/o swollen lymph nodes. TECHNIQUE: Multidetector CT of the neck was performed after the administration of intravenous contrast. IV contrast: 95 mL of Optiray 320. A dose lowering technique was used consistent with the principles of ALARA (as low as reasonably achievable). COMPARISON: 04/14/2016 CT DOSE (mGy.cm): The estimated cumulative dose is 529.59 mGy.cm. FINDINGS: Canvas Cutter Machine topogram: Unremarkable. At the site of the previously enlarged left submandibular lymph node is now normal appearing measuring 6 mm in the short axis (series 3 image 155). No cervical lymphadenopathy. No inflammatory change. No suspicious nodular enhancement along the airway. No effacement of the valleculae or piriform sinuses. Parotid, submandibular, and thyroid glands normal. Vessels patent. Limited intracranial evaluation within normal limits. Orbits normal. Paranasal sinuses and mastoid air cells clear. Cervical spine with mild degenerative change. Lung apices clear. IMPRESSION: Resolution of the previously noted pathologically enlarged left submandibular lymph node. This was likely infectious or inflammatory in etiology. No suspicious findings on the current exam. Electronically signed by: Gregory Gaines M.D. 07/14/2017 5:55 PM Dictated Date/Time: 07/14/2017 5:52 PM Laboratory Results 07/14/17 16:14 Red Blood Count 4.57, Mean Corpuscular Volume 94.5, Mean Corpuscular Hemoglobin 31.7, Mean Corpuscular Hemoglobin Concent 33.6, Mean Platelet Volume 9.2, Neutrophils (%) (Auto) 54.5, Lymphocytes (%) (Auto) 30.1, Monocytes (%) (Auto) 12.4, Eosinophils (%) (Auto) 1.9, Basophils (%) (Auto) 0.7, Neutrophils # (Auto ) 4.39, Lymphocytes # (Auto) 2.42, Monocytes # (Auto) 1.00, Eosinophils # (Auto ) 0.15, Basophils # (Auto) 0.06 07/14/17 16:14 Test 07/14/17 16:14 White Blood Count 8.05 K/uL (4.8-10.8) Red Blood Count 4.57 M/uL (4.2-5.4) Hemoglobin 14.5 g/dL (12.0-16.0) Hematocrit 43.2 % (37-47) Mean Corpuscular Volume 94.5 fL (80-100) Mean Corpuscular Hemoglobin 31.7 pg (25-34) Mean Corpuscular Hemoglobin Concent 33.6 g/dl (32-36) Platelet Count 280 K/uL (130-400) Mean Platelet Volume 9.2 fL (7.4-10.4) Neutrophils (%) (Auto) 54.5 % Lymphocytes (%) (Auto) 30.1 % Monocytes (%) (Auto) 12.4 % Eosinophils (%) (Auto) 1.9 % Basophils (%) (Auto) 0.7 % Neutrophils # (Auto) 4.39 K/uL (1.4-6.5) Lymphocytes # (Auto) 2.42 K/uL (1.2-3.4) Monocytes # (Auto) 1.00 K/uL (0.11-0.59) Eosinophils # (Auto) 0.15 K/uL (0-0.5) Basophils # (Auto) 0.06 K/uL (0-0.2) RDW Standard Deviation 48.9 fL (36.4-46.3) RDW Coefficient of Variation 14.5 % (11.5-14.5) Immature Granulocyte % (Auto) 0.4 % Immature Granulocyte # (Auto) 0.03 K/uL (0.00-0.02) Anion Gap 2.0 mmol/L (3-11) Est Creatinine Clear Calc Drug Dose 67.3 ml/min Estimated GFR () 70.9 Estimated GFR (Non- 61.1 BUN/Creatinine Ratio 9.0 (10-20) Calcium Level 9.5 mg/dl (8.5-10.1) Total Bilirubin 0.5 mg/dl (0.2-1) Direct Bilirubin 0.1 mg/dl (0-0.2) Aspartate Amino Transf (AST/SGOT) 15 U/L (15-37) Alanine Aminotransferase (ALT/SGPT) 18 U/L (12-78) Alkaline Phosphatase 121 U/L (45-117) Total Protein 6.8 gm/dl (6.4-8.2) Albumin 3.9 gm/dl (3.4-5.0) Thyroid Stimulating Hormone (TSH) 1.490 uIu/ml (0.300-4.500) Ethyl Alcohol mg/dL < 3.0 mg/dl (0-3) Labs reviewed by ED physician. Medications Administered Medications (Trade) Dose Ordered Sig/Elsa Route Start Time Stop Time Status Last Admin Dose Admin Albuterol/ Ipratropium (Duoneb) 3 ml NOW STAT INH 07/14/17 15:59 07/14/17 16:02 DC 07/14/17 16:12 3 ML Oxycodone HCl (Roxicodone Immediate Rel Tab) 10 mg NOW STAT PO 07/14/17 15:59 07/14/17 16:02 DC 07/14/17 16:13 10 MG Clonidine HCl (Lejeuiin-Cav-5 0.3mg/24hr Patch) 1 patch NOW STAT TD 07/14/17 16:04 07/14/17 16:06 DC 07/14/17 16:14 1 PATCH Lidocaine (Lidoderm Patch 5%) 1 patch NOW STAT TD 07/14/17 16:04 07/14/17 16:06 DC 07/14/17 16:13 1 PATCH Ibuprofen (Motrin Tab) 600 mg NOW STAT PO 07/14/17 16:04 07/14/17 16:06 DC 07/14/17 16:13 600 MG ED Course 1541: Past medical records reviewed. The patient was evaluated in room C7. A complete history and physical examination was performed. 1559: Ordered Oxycodone HCL 10mg PO and Duoneb 3ml INH. 1604: Ordered Ibuprofen 600mg PO, Lidocaine 1 patch, and Clonidine HCl 1 patch. 1615: Ordered Ioversol 100ml IV. 1818: Upon reexamination the patient is resting comfortably. I discussed results and treatment plan with the patient. She verbalizes agreement and understanding. The patient is ready for discharge. Medical Decision Differential diagnosis: Etiologies such as metabolic, infection, hypo/hyperglycemia, electrolyte abnormalities, cardiac sources, intracerebral event, toxicologic, neurologic, as well as others were entertained. This is a 57-year-old female who comes to emergency department with a number of complaints. Patient is complaining of lymph nodes in her neck being swollen. In addition she feels she is in withdrawal from her pain medication as she can no longer get them from her pain management clinic. I will note that the patient just had a prescription for OxyContin filled several days ago for a large number of narcotics. She was given 10 mg of oxycodone while she was here in the emergency department and was given a Lidoderm patch for pain as well as a clonidine patch for withdrawal. The CT of the patient's neck shows that her lymph nodes are actually smaller than they had been. The patient does not recall ever getting a CT of her neck previously. She was given a breathing treatment here in the emergency department with much improvement in her symptoms. I was in contact with case management to get this patient into pain management however she should probably be on the no narcotics list here in the emergency department. [place] Drug Monitoring Program Search Results: patient reviewed within database, see additional documentation Drug Monitoring Findings: Pt had (60) Oxycontin 15 mg filled on 07/02/17 Oxycodone 10 mg 06/09/17 (90) Medication Reconcilliation Current Medication List: was personally reviewed by me Blood Pressure Screening Patient's blood pressure: Normal blood pressure Blood pressure disposition: Did not require urgent referral Impression Primary Impression: Enlarged lymph nodes Scribe Attestation The scribe's documentation has been prepared under my direction and personally reviewed by me in its entirety. I confirm that the note above accurately reflects all work, treatment, procedures, and medical decision making performed by me. Departure Information Dispostion Home / Self-Care Referrals Lelo Ramirez M.D. (PCP) Forms HOME CARE DOCUMENTATION FORM, IMPORTANT VISIT INFORMATION, WORK / SCHOOL INSTRUCTIONS Patient Instructions My [facility] Additional Instructions Need follow up with Dr Ramirez's office Return if you feel suicidal or Homicidal You received narcotic or benzodiazepene medication while in the emergency room today. This is an addictive medication that may cause drowziness as well as constipation. Do not drive, operate heavy machinery, or drink alcohol under the influence of this medication. You have been examined and treated today on an emergency basis only. This is not a substitute for, or an effort to provide, complete comprehensive medical care. It is impossible to recognize and treat all injuries or illnesses in a single emergency department visit. It is therefore important that you follow up closely with Dr Ramirez. Call as soon as possible for an appointment. Thank you for your time and consideration. I look forward to speaking with you again soon. Please don't hesitate to call us if you have any questions.
[2017-07-14 16:53] LABS: ALBUMIN 3.9 gm/dl (3.4-5.0); CALCIUM 9.5 mg/dl (8.5-10.1); CREATININE 1.03 mg/dl (0.60-1.20); POTASSIUM 3.7 mmol/L (3.5-5.1)
[2017-07-14 17:04] LABS: TOTAL PROTEIN 6.8 gm/dl (6.4-8.2)
--- NOTE | 2017-07-14 17:57 | DIAGNOSTIC IMAGING REPORT ---
SOFT TISSUE NECK WITH CLINICAL HISTORY: 57 years-old Female presenting with Pt c/o swollen lymph nodes. TECHNIQUE: Multidetector CT of the neck was performed after the administration of intravenous contrast. IV contrast: 95 mL of Optiray 320. A dose lowering technique was used consistent with the principles of ALARA (as low as reasonably achievable). COMPARISON: 04/14/2016 CT DOSE (mGy.cm): The estimated cumulative dose is 529.59 mGy.cm. FINDINGS: Materials Intern topogram: Unremarkable. At the site of the previously enlarged left submandibular lymph node is now normal appearing measuring 6 mm in the short axis (series 3 image 155). No cervical lymphadenopathy. No inflammatory change. No suspicious nodular enhancement along the airway. No effacement of the valleculae or piriform sinuses. Parotid, submandibular, and thyroid glands normal. Vessels patent. Limited intracranial evaluation within normal limits. Orbits normal. Paranasal sinuses and mastoid air cells clear. Cervical spine with mild degenerative change. Lung apices clear. IMPRESSION: Resolution of the previously noted pathologically enlarged left submandibular lymph node. This was likely infectious or inflammatory in etiology. No suspicious findings on the current exam. Electronically signed by: Gregory Gaines M.D. 07/14/2017 5:55 PM Dictated Date/Time: 07/14/2017 5:52 PM
[2017-07-14 18:17] VITALS: BP 122/68; PULSE 79; O2SAT 94
== END 2017-07-14 18:28 | disposition home or self-care (01) ==
LOC: C.EDB 15:14 → C.EDC 18:28
DX: R59.9 Enlarged lymph nodes, unspecified (principal); F17.200 Nicotine dependence, unspecified, uncomplicated

== ENCOUNTER 2017-07-18 10:26 | Emergency (ER) | payer OTHER ==
[~2017-07-18] VITALS: Ht 170.2 cm; Wt 79.9 kg
[~2017-07-18 10:26] MED LIST changes: -METH4PAK PO
[2017-07-18 10:33] VITALS: Ht 170.2 cm; Wt 79.9 kg
[2017-07-18] MEDS ORDERED: METOCLOPRAMIDE HCL INJ 5 MG/ML 2 ML VIAL IV. STA (11:26)
[2017-07-18] MEDS ORDERED: GI COCKTAIL PO STA (11:26)
[2017-07-18] MEDS ORDERED: SODIUM CHLORIDE 0.9% 500ML 500 ML IV STA (11:26)
--- NOTE | 2017-07-18 11:28 | EMERGENCY ROOM VISIT NOTE ---
History Report prepared by Estela: Linda Asencio Under the Supervision of: Dr. Wes Whitfield M.D. 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 Negative urinary symptoms. She describes her pain as burning and dull, but sharp when she eats. Eating is a worsening factor. She reports she always drinks Diet Mountain Dew and is a current smoker. 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 A total of ten systems were reviewed and were otherwise negative. Past Medical & Surgical Medical Problems: (1) Urinary tract infection Surgical Problems: (1) Gastric bypass status for obesity Family History No pertinent family history Social History Smoking Status: Current Every Day Smoker Alcohol Use: none Drug Use: none Marital Status: single Housing Status: lives with family Occupation Status: employed Current/Historical Medications Scheduled Citalopram Hydrobromide (Citalopram Hydrobromide), 20 MG PO DAILY Ferrous Sulfate (Slow Fe), 142 MG PO DAILY Levothyroxine Sodium (Levothyroxine Sodium), 50 MCG PO DAILY Lisinopril (Prinivil), 30 MG PO DAILY Omeprazole (Prilosec), 20 MG PO BID Pediatric Multiple Vitamin W/ (Flintstones Chewable), 1 TAB PO BID Scheduled PRN Ondansetron Hcl (Zofran), 4 MG PO Q8H PRN for Nausea Allergies Coded Allergies: No Known Allergies (Verified , 07/18/17) Physical Exam Vital Signs Date Time Temp Pulse Resp B/P (MAP) Pulse Ox O2 Delivery O2 Flow Rate FiO2 07/18/17 16:09 76 18 134/82 98 Room Air 07/18/17 14:34 64 15 133/82 94 Room Air 07/18/17 13:39 66 14 129/83 95 Room Air 07/18/17 12:16 69 12 134/79 93 Room Air 07/18/17 12:10 66 07/18/17 11:25 68 16 147/82 96 07/18/17 10:33 36.7 78 18 142/93 96 Room Air Physical Exam GENERAL: Awake, alert, well-appearing, NAD. Wearing glasses. HENT: Normocephalic, atraumatic. Edentulous. EYES: Normal conjunctiva. Sclera non-icteric. NECK: Supple. No nuchal rigidity. FROM. RESPIRATORY: CTAB, no rhonchi, wheezing, crackles CARDIAC: RRR, no MRG ABDOMEN: Soft, NTND, BS+. Epigastric RUQ discomfort. Negative obturators, negative psoas, negative Martin's. MSK: No chest wall TTP, no LE edema NEURO: GCS 15, CN 2-12 intact, moves all 4s on command SKIN: No rash or jaundice noted. Medical Decision & Procedures ER Provider Diagnostic Interpretation: Radiology results as stated below per my review and radiologist interpretation: KUB CLINICAL HISTORY: ABDOMINAL PAIN/GI pain COMPARISON STUDY: 07/04/2010 FINDINGS: Increased fecal load throughout the colon consistent with fecal stasis. No evidence for fecal impaction. Postoperative changes left upper quadrant. Prior right hip arthroplasty. IMPRESSION: Nonobstructive bowel pattern. Increased fecal load throughout the colon consistent with fecal stasis. The above report was generated using voice recognition software. It may contain grammatical, syntax or spelling errors. Electronically signed by: Yao Medina M.D. 07/18/2017 1:01 PM GALLBLADDER-ABD LIMITED CLINICAL HISTORY: h/o GB disease even w/ RYGB, no lap virgil, epi/RUQ pain pain. Nausea. TECHNIQUE: Ultrasound COMPARISON STUDY: 06/15/2013 FINDINGS: Normal gallbladder. Common bile duct 7 mm unchanged in the prior study. Liver is uniform. Intrahepatic ducts are unremarkable. Pancreas and right kidney are unremarkable. IMPRESSION: Negative study The above report was generated using voice recognition software. It may contain grammatical, syntax or spelling errors. Electronically signed by: Yao Medina M.D. 07/18/2017 1:37 PM Laboratory Results 07/18/17 11:54 Red Blood Count 4.43, Mean Corpuscular Volume 93.0, Mean Corpuscular Hemoglobin 31.6, Mean Corpuscular Hemoglobin Concent 34.0, Mean Platelet Volume 9.3, Neutrophils (%) (Auto) 74.6, Lymphocytes (%) (Auto) 16.2, Monocytes (%) (Auto) 6.9, Eosinophils (%) (Auto) 1.3, Basophils (%) (Auto) 0.7, Neutrophils # (Auto) 5.16, Lymphocytes # (Auto) 1.12, Monocytes # (Auto) 0.48, Eosinophils # (Auto) 0.09, Basophils # (Auto) 0.05 07/18/17 11:54 Test 07/18/17 11:54 07/18/17 15:00 White Blood Count 6.92 K/uL (4.8-10.8) Red Blood Count 4.43 M/uL (4.2-5.4) Hemoglobin 14.0 g/dL (12.0-16.0) Hematocrit 41.2 % (37-47) Mean Corpuscular Volume 93.0 fL (80-100) Mean Corpuscular Hemoglobin 31.6 pg (25-34) Mean Corpuscular Hemoglobin Concent 34.0 g/dl (32-36) Platelet Count 214 K/uL (130-400) Mean Platelet Volume 9.3 fL (7.4-10.4) Neutrophils (%) (Auto) 74.6 % Lymphocytes (%) (Auto) 16.2 % Monocytes (%) (Auto) 6.9 % Eosinophils (%) (Auto) 1.3 % Basophils (%) (Auto) 0.7 % Neutrophils # (Auto) 5.16 K/uL (1.4-6.5) Lymphocytes # (Auto) 1.12 K/uL (1.2-3.4) Monocytes # (Auto) 0.48 K/uL (0.11-0.59) Eosinophils # (Auto) 0.09 K/uL (0-0.5) Basophils # (Auto) 0.05 K/uL (0-0.2) RDW Standard Deviation 47.3 fL (36.4-46.3) RDW Coefficient of Variation 13.9 % (11.5-14.5) Immature Granulocyte % (Auto) 0.3 % Immature Granulocyte # (Auto) 0.02 K/uL (0.00-0.02) Anion Gap 8.0 mmol/L (3-11) Est Creatinine Clear Calc Drug Dose 98.8 ml/min Estimated GFR () 113.0 Estimated GFR (Non- 97.5 BUN/Creatinine Ratio 22.1 (10-20) Calcium Level 8.8 mg/dl (8.5-10.1) Magnesium Level 1.8 mg/dl (1.8-2.4) Total Bilirubin 0.7 mg/dl (0.2-1) Direct Bilirubin 0.3 mg/dl (0-0.2) Aspartate Amino Transf (AST/SGOT) 1238 U/L (15-37) Alanine Aminotransferase (ALT/SGPT) 786 U/L (12-78) Alkaline Phosphatase 127 U/L (45-117) Total Protein 6.4 gm/dl (6.4-8.2) Albumin 3.6 gm/dl (3.4-5.0) Lipase 119 U/L (73-393) Acetaminophen Level 3 ug/ml (10-30) Laboratory results reviewed by me Medications Administered Medications (Trade) Dose Ordered Sig/Elsa Route Start Time Stop Time Status Last Admin Dose Admin Metoclopramide HCl (Reglan Inj) 10 mg NOW STAT IV. 07/18/17 11:26 07/18/17 11:29 DC 07/18/17 12:01 10 MG Sodium Chloride 500 ml @ 999 mls/hr Q31M STAT IV 07/18/17 11:26 07/18/17 11:56 DC 07/18/17 12:09 999 MLS/HR Lidocaine HCl (Viscous Lidocaine 2% Soln) 20 ml STK-MED ONCE .ROUTE 07/18/17 11:33 07/18/17 11:34 DC 07/18/17 12:11 10 ML Al Hydroxide/Mg Hydroxide (Maalox Susp) 30 ml STK-MED ONCE .ROUTE 07/18/17 11:33 07/18/17 11:34 DC 07/18/17 12:10 30 ML Ondansetron HCl (Zofran Inj) 4 mg NOW STAT IV 07/18/17 14:53 07/18/17 14:54 DC 07/18/17 15:00 4 MG ED Course 1117: The patient was evaluated in room C4. A complete history and physical exam was performed. 1355: I checked on the patient at this time. She is feeling better. 1412: I discussed the patient's case with Rishabh Orr. He recommended checking her Tylenol level and follow up in 2 days for a follow up liver function test. 1558: I checked on the patient at this time. She is feeling better. 1628: I reevaluated the patient. Discussed results and discharge instructions: She verbalized understanding and agreement. The patient is ready for discharge. 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 Negative urinary symptoms. Nursing notes reviewed. Ancillary studies and prior records reviewed. Differential diagnosis: Etiologies such as appendicitis, diverticulitis, PUD, biliary pathology, UTI, pancreatitis, obstruction, mesenteric ischemia, aortic pathology, infections, inflammatory bowel disease, renal colic, as well as others were entertained. Patient was seen and evaluated the bedside. Patient does have a prior history of gastric bypass. Patient also states that she did not have an appendectomy or cholecystectomy. Patient has complained of nausea and inability to tolerate p.o. over the last several days. Patient did have several episodes of vomiting but has not vomited in the last 2 days. Patient has not had a recent bowel movement she is passing gas. Patient has not seen a postie in some time. Of note the patient does smoke. She was counseled on smoking cessation. Patient had blood work completed along with a KUB and gallbladder ultrasound. Patient's gallbladder ultrasound showed a 7 mm CBD but no acute concerns for choledocho lithiasis, cholelithiasis, or cholecystitis. Patient's white blood cell count within normal limits. Patient did have gross elevations in LFTs. I did speak with the on-call call postie did state that while it may be viral in nature a Tylenol level would be of benefit. A Tylenol level was checked and was low. Less likely an acute or chronic Tylenol ingestion. This is most likely viral given the patient's history. Patient was given an order to have repeat blood work completed in 2 days to get a general trend. Patient was also given medications for home and told to continue a bland diet as well as avoid smoking and Mountain Dew use. Patient was deemed suitable for outpatient follow-up and treatment at this time. The patient was clinically feeling improved and was able tolerate p.o. Patient was given strict follow-up , discharge, and return precautions. All questions were answered. Patient was deemed suitable for outpatient follow-up at this time. Patient agreed with the plan of care and was safely discharged home. Medication Reconcilliation Current Medication List: was personally reviewed by me Blood Pressure Screening Patient's blood pressure: Elevated blood pressure Blood pressure disposition: Elevated BP felt to be situational Consults Time Called: 1410 Consulting Physician: Rishabh Orr GI Returned Call: 1412 He recommended checking her Tylenol level and follow up in 2 days for a follow up liver function test. Impression Primary Impression: Elevated liver enzymes Additional Impressions: Abdominal pain Encounter for smoking cessation counseling Scribe Attestation The scribe's documentation has been prepared under my direction and personally reviewed by me in its entirety. I confirm that the note above accurately reflects all work, treatment, procedures, and medical decision making performed by me. Departure Information Dispostion Home / Self-Care Prescriptions Ondansetron Hcl (ZOFRAN) 4 Mg Tab 4 MG PO Q8H Y for Nausea, #12 TAB Prov: Wes Whitfield M.D. 07/18/17 Referrals Lelo Ramirez M.D. (PCP) Forms HOME CARE DOCUMENTATION FORM, IMPORTANT VISIT INFORMATION Patient Instructions Abdominal Pain, ED Diet Williams, ED Smoking Cessation, [facility] Additional Instructions Please return to the emergency department if you have worsening or recurrent symptoms not amenable to at-home treatment. Please call for a follow-up appointment with her primary care physician. Please take your medications as prescribed. If you have other concerns and/or complaints please feel free to also call your primary care physician's office or return the ED for further evaluation, management, and treatment. Please avoid any alcohol or Tylenol. Take your medications as prescribed. If taking an antibiotic consider taking a probiotic and/or eating yogurt, but at the least, please take with food as it can cause upset stomach. Please return in 2 days for your repeat blood work for your liver function tests. Please call your primary care physician to help set up a follow-up with your postie. You have been examined and treated today on an emergency basis only. This is not a substitute for, or an effort to provide, complete comprehensive medical care. It is impossible to recognize and treat all injuries or illnesses in a single emergency department visit. It is therefore important that you follow up closely with [facility], your PCP, and/or your specialist(s). Call as soon as possible for an appointment. Thank you for your time and consideration. I look forward to speaking with you again soon. Please don't hesitate to call us if you have any questions. Problem Qualifiers Additional Impressions: Abdominal pain Abdominal location: epigastric Qualified Codes: R10.13 - Epigastric pain
[2017-07-18] MEDS ORDERED: LIDOCAINE HCL 2% VISC SOLN 20 ML UDC ONE (11:33)
[2017-07-18] MEDS ORDERED: ALUMINUM/MAGNESIUM SUSP 30 ML UDC ONE (11:33)
[2017-07-18 12:13] LABS: BASO % 0.7 %; BASO ABS # 0.05 K/uL (0-0.2); EOS % 1.3 %; EOS ABS # 0.09 K/uL (0-0.5); HEMATOCRIT 41.2 % (37-47); IG# 0.02 K/uL (0.00-0.02); LYMPH % 16.2 %; LYMPH ABS # 1.12 K/uL (1.2-3.4); MEAN CORPUSCULAR HEMOGLOBIN 31.6 pg (25-34); MEAN PLATELET VOLUME 9.3 fL (7.4-10.4); MONO % 6.9 %; MONO ABS # 0.48 K/uL (0.11-0.59); NEUT % 74.6 %; NEUT ABS # 5.16 K/uL (1.4-6.5); PLATELET COUNT 214 K/uL (130-400); RED CELL DISTRIBUTION WIDTH CV 13.9 % (11.5-14.5); RED CELL DISTRIBUTION WIDTH SD 47.3 fL (36.4-46.3); WHITE BLOOD COUNT 6.92 K/uL (4.8-10.8)
[2017-07-18 12:37] LABS: ALBUMIN 3.6 gm/dl (3.4-5.0); CALCIUM 8.8 mg/dl (8.5-10.1); CREATININE 0.7 mg/dl (0.60-1.20); POTASSIUM 3.7 mmol/L (3.5-5.1)
[2017-07-18 12:44] LABS: TOTAL PROTEIN 6.4 gm/dl (6.4-8.2)
--- NOTE | 2017-07-18 13:03 | DIAGNOSTIC IMAGING REPORT ---
MEI CLINICAL HISTORY: ABDOMINAL PAIN/GI pain COMPARISON STUDY: 07/04/2010 FINDINGS: Increased fecal load throughout the colon consistent with fecal stasis. No evidence for fecal impaction. Postoperative changes left upper quadrant. Prior right hip arthroplasty. IMPRESSION: Nonobstructive bowel pattern. Increased fecal load throughout the colon consistent with fecal stasis. The above report was generated using voice recognition software. It may contain grammatical, syntax or spelling errors. Electronically signed by: Yao Medina M.D. 07/18/2017 1:01 PM Dictated Date/Time: 07/18/2017 1:01 PM
--- NOTE | 2017-07-18 13:39 | DIAGNOSTIC IMAGING REPORT ---
GALLBLADDER-ABD LIMITED CLINICAL HISTORY: h/o GB disease even w/ RYGB, no lap virgil, epi/RUQ pain pain. Nausea. TECHNIQUE: Ultrasound COMPARISON STUDY: 06/15/2013 FINDINGS: Normal gallbladder. Common bile duct 7 mm unchanged in the prior study. Liver is uniform. Intrahepatic ducts are unremarkable. Pancreas and right kidney are unremarkable. IMPRESSION: Negative study The above report was generated using voice recognition software. It may contain grammatical, syntax or spelling errors. Electronically signed by: Yao Medina M.D. 07/18/2017 1:37 PM Dictated Date/Time: 07/18/2017 1:37 PM
[2017-07-18] MEDS ORDERED: ONDANSETRON INJ 2 MG/ML 2 ML VIAL IV STA (14:53)
[2017-07-18] MEDS ORDERED: ONDA4TAB46 PO (16:10)
[2017-07-18 16:36] VITALS: BP 134/82; PULSE 76; TEMP 36.7; O2SAT 98
== END 2017-07-18 16:37 | disposition home or self-care (01) ==
LOC: C.EDB 10:28 → C.EDC 16:37
DX: R10.13 Epigastric pain (principal); R11.2 Nausea with vomiting, unspecified; R79.89 Other specified abnormal findings of blood chemistry; Z71.6 Tobacco abuse counseling; K08.109 Complete loss of teeth, unspecified cause, unspecified class; Z98.84 Bariatric surgery status; F17.200 Nicotine dependence, unspecified, uncomplicated

== ENCOUNTER 2017-08-01 16:46 | Emergency (ER) | payer OTHER ==
[~2017-08-01] VITALS: Ht 170.2 cm; Wt 78.3 kg
[~2017-08-01 16:46] MED LIST changes: +ONDA4TAB46 PO
[2017-08-01 17:02] VITALS: TEMP 37.3; Ht 170.2 cm; Wt 78.3 kg
[2017-08-01] MEDS ORDERED: FAMOTIDINE 20MG/5ML IV PUSH IV STA (17:12)
[2017-08-01] MEDS ORDERED: SODIUM CHLORIDE 0.9% 1000ML 1,000 ML IV STA (17:12)
[2017-08-01] MEDS ORDERED: ONDANSETRON INJ 2 MG/ML 2 ML VIAL IV STA (17:12)
--- NOTE | 2017-08-01 17:16 | EMERGENCY ROOM VISIT NOTE ---
History Report prepared by Estela: Bela Velásquez Under the Supervision of: Dr. Aries Guy M.D. First contact with patient: 17:01 Chief Complaint: VOMITING Stated Complaint: ILLNESS WITH FEVER History of Present Illness The patient is a 57 year old female who presents to the Emergency Room with complaints of constant generalized illness beginning yesterday. The patient reports feeling fatigued yesterday. She then started to develop nausea, vomiting and body aches beginning at 4 am this morning. The patient was seen in the ED in June with similar symptoms and it was found her liver enzymes were elevated. She reports she did not follow up with Dr. Champagne as instructed after her ED visit. Prior to her last visit, she would take 2 tablets of Tylenol every 6 hours. Since her last visit, she reports she decreased her Tylenol intake. The patient's last bowel movement was yesterday which was normal. The patient had a gastric bypass in 2006 which was repaired in 2007. She denies having any issues bedside dehydration with her bypass since the repair. She denies any diarrhea, chest pain, shortness of breath, cough, or congestion. The patient denies any alcohol use. Source of History: patient Onset: yesterday Position: other (generalized) Quality: other (illness) Timing: constant Associated Symptoms: + nausea, + vomiting, + fatigue, No fevers, No chills, No cough, No chest pain, No SOB Review of Systems See HPI for pertinent positives and negatives. A total of ten systems were reviewed and were otherwise negative. Past Medical & Surgical Medical Problems: (1) Urinary tract infection Surgical Problems: (1) Gastric bypass status for obesity Family History No pertinent family history Social History Smoking Status: Current Every Day Smoker Alcohol Use: none Drug Use: none Marital Status: single Housing Status: lives with family Occupation Status: employed Current/Historical Medications Scheduled Citalopram Hydrobromide (Citalopram Hydrobromide), 20 MG PO DAILY Ferrous Sulfate (Slow Fe), 142 MG PO DAILY Levothyroxine Sodium (Levothyroxine Sodium), 50 MCG PO DAILY Lisinopril (Prinivil), 30 MG PO DAILY Omeprazole (Prilosec), 20 MG PO BID Ondasetron Odt (Zofran Odt), 4 MG SL Q6H Pediatric Multiple Vitamin W/ (Flintstones Chewable), 1 TAB PO BID Scheduled PRN Famotidine (Pepcid), 20 MG PO BID PRN for GI Upset Allergies Coded Allergies: No Known Allergies (Verified , 07/18/17) Physical Exam Vital Signs Date Time Temp Pulse Resp B/P (MAP) Pulse Ox O2 Delivery O2 Flow Rate FiO2 08/01/17 22:55 82 18 165/105 96 08/01/17 21:52 73 08/01/17 21:26 76 16 155/100 95 Room Air 08/01/17 20:00 77 15 173/109 95 Room Air 08/01/17 18:26 79 16 180/93 96 Room Air 08/01/17 17:45 78 08/01/17 17:02 37.3 89 18 193/109 93 Room Air Physical Exam GENERAL: Awake, alert, fatigued and uncomfortable-appearing, in no distress HENT: Normocephalic, atraumatic. Oropharynx unremarkable. Dry MM. EYES: Normal conjunctiva. Sclera non-icteric. NECK: Supple. No nuchal rigidity. FROM. No JVD. RESPIRATORY: Clear to auscultation. CARDIAC: Regular rate, normal rhythm. Extremities warm and well perfused. Pulses equal. ABDOMEN: Soft, non-distended. No tenderness to palpation. No rebound or guarding. No masses. RECTAL: Deferred. MUSCULOSKELETAL: Chest examination reveals no tenderness. The back is symmetrical on inspection without obvious abnormality. There is no CVA tenderness to palpation. No joint edema. LOWER EXTREMITIES: Calves are equal size bilaterally and non-tender. No edema. No discoloration. NEURO: Normal sensorium. No sensory or motor deficits noted. SKIN: No rash or jaundice noted. Medical Decision & Procedures ER Provider Diagnostic Interpretation: Radiology results as stated below per my review and radiologist interpretation: CHEST ONE VIEW PORTABLE FINDINGS: Cardiac mediastinal and hilar silhouettes are within normal limits. There is no pneumothorax, pleural effusion, focal airspace consolidation or overt pulmonary edema. The bones of the chest appear grossly intact. IMPRESSION: No acute process. The above report was generated using voice recognition software. It may contain grammatical, syntax or spelling errors. Electronically signed by: Pierce Owen M.D. ABDOMEN AND PELVIS CT WITH IV AND ORAL CONTRAST CT DOSE: 316.40 mGy.cm HISTORY: Acute nausea and vomiting with history of gastric bypass n/v h/o gastric bypass TECHNIQUE: Multiaxial CT images of the abdomen and pelvis were performed following the use of intravenous and oral contrast. A dose lowering technique was utilized adhering to the principles of ALARA. COMPARISON STUDY: Pelvic CT 03/29/2017. FINDINGS: Lung bases are clear. No pneumatosis or pneumoperitoneum. Imaged inferior cardiac chambers are unremarkable. Trace pericardial effusion. Gallbladder is mildly distended. No cholelithiasis or CT evidence of acute cholecystitis. No intrahepatic biliary ductal dilation or focal hepatic mass lesion. Spleen, pancreas and left adrenal gland are within normal limits. 1.5 cm soft tissue attenuating nodule of the right adrenal gland is indeterminate. Kidneys, ureters and bladder are unremarkable. Prior hysterectomy. Air-filled vaginal cuff. No adnexal mass lesions. Mild mixed plaquing of the aorta without aneurysm. No bulky adenopathy. Postoperative changes from prior gastric bypass. Minimal fluid is noted within the excluded gastric limb. No inflammatory changes or obstruction. Large bowel is within normal limits with mild colonic diverticulosis without diverticulitis. The appendix is not definitively seen. Small fat filled supraumbilical abdominal wall hernia, diastases 2.8 cm. Nonobstructed small bowel and mesenteric fat extends into a periumbilical hernia, diastases 3.7 cm. Right hip arthroplasty. Mild multilevel facet arthrosis. 1.3 cm sclerotic focus of the right iliac wing is noted suggesting possible bone island, unchanged. Multilevel discogenic degenerative changes and facet arthrosis. Right hip arthroplasty in satisfactory alignment. IMPRESSION: 1. Prior gastric bypass. No bowel obstruction or focal bowel wall thickening. 2. Ventral abdominal wall hernias including a fat and small bowel filled periumbilical hernia. 3. Mild gallbladder distention without cholelithiasis or CT evidence of acute cholecystitis. 4. Prior hysterectomy. Electronically signed by: Pierce Owen M.D. Laboratory Results 08/01/17 17:24 Red Blood Count 4.72, Mean Corpuscular Volume 93.2, Mean Corpuscular Hemoglobin 32.4, Mean Corpuscular Hemoglobin Concent 34.8, Mean Platelet Volume 9.1, Neutrophils (%) (Auto) 61.3, Lymphocytes (%) (Auto) 24.5, Monocytes (%) (Auto) 12.3, Eosinophils (%) (Auto) 1.1, Basophils (%) (Auto) 0.6, Neutrophils # (Auto ) 5.86, Lymphocytes # (Auto) 2.34, Monocytes # (Auto) 1.18, Eosinophils # (Auto ) 0.11, Basophils # (Auto) 0.06 08/01/17 17:30 Test 08/01/17 17:24 08/01/17 17:30 08/01/17 18:30 White Blood Count 9.57 K/uL (4.8-10.8) Red Blood Count 4.72 M/uL (4.2-5.4) Hemoglobin 15.3 g/dL (12.0-16.0) Hematocrit 44.0 % (37-47) Mean Corpuscular Volume 93.2 fL (80-100) Mean Corpuscular Hemoglobin 32.4 pg (25-34) Mean Corpuscular Hemoglobin Concent 34.8 g/dl (32-36) Platelet Count 347 K/uL (130-400) Mean Platelet Volume 9.1 fL (7.4-10.4) Neutrophils (%) (Auto) 61.3 % Lymphocytes (%) (Auto) 24.5 % Monocytes (%) (Auto) 12.3 % Eosinophils (%) (Auto) 1.1 % Basophils (%) (Auto) 0.6 % Neutrophils # (Auto) 5.86 K/uL (1.4-6.5) Lymphocytes # (Auto) 2.34 K/uL (1.2-3.4) Monocytes # (Auto) 1.18 K/uL (0.11-0.59) Eosinophils # (Auto) 0.11 K/uL (0-0.5) Basophils # (Auto) 0.06 K/uL (0-0.2) RDW Standard Deviation 50.3 fL (36.4-46.3) RDW Coefficient of Variation 14.7 % (11.5-14.5) Immature Granulocyte % (Auto) 0.2 % Immature Granulocyte # (Auto) 0.02 K/uL (0.00-0.02) Prothrombin Time 10.0 SECONDS (9.0-12.0) Prothromb Time International Ratio 1.0 (0.9-1.1) Anion Gap 6.0 mmol/L (3-11) Est Creatinine Clear Calc Drug Dose 81.6 ml/min Estimated GFR () 90.7 Estimated GFR (Non- 78.2 BUN/Creatinine Ratio 16.5 (10-20) Lactic Acid Level 1.2 mmol/L (0.4-2.0) Calcium Level 9.4 mg/dl (8.5-10.1) Total Bilirubin 0.4 mg/dl (0.2-1) Direct Bilirubin 0.1 mg/dl (0-0.2) Aspartate Amino Transf (AST/SGOT) 20 U/L (15-37) Alanine Aminotransferase (ALT/SGPT) 41 U/L (12-78) Alkaline Phosphatase 121 U/L (45-117) Troponin I < 0.015 ng/ml (0-0.045) Total Protein 7.4 gm/dl (6.4-8.2) Albumin 4.1 gm/dl (3.4-5.0) Lipase 250 U/L (73-393) Ethyl Alcohol mg/dL < 3.0 mg/dl (0-3) Urine Color YELLOW Urine Appearance CLEAR (CLEAR) Urine pH 6.0 (4.5-7.5) Urine Specific [place] 1.022 (1.000-1.030) Urine Protein NEG (NEG) Urine Glucose (UA) NEG (NEG) Urine Ketones NEG (NEG) Urine Occult Blood 2+ (NEG) Urine Nitrite NEG (NEG) Urine Bilirubin NEG (NEG) Urine Urobilinogen NEG (NEG) Urine Leukocyte Esterase NEG (NEG) Urine WBC (Auto) 1-5 /hpf (0-5) Urine RBC (Auto) 10-30 /hpf (0-4) Urine Hyaline Casts (Auto) 1-5 /lpf (0-5) Urine Epithelial Cells (Auto) >30 /lpf (0-5) Urine Bacteria (Auto) NEG (NEG) Laboratory results reviewed by me Medications Administered Medications (Trade) Dose Ordered Sig/Elsa Route Start Time Stop Time Status Last Admin Dose Admin Sodium Chloride 1,000 ml @ 999 mls/hr Q1H1M STAT IV 08/01/17 17:12 08/01/17 18:12 DC 08/01/17 17:41 999 MLS/HR Ondansetron HCl (Zofran Inj) 4 mg NOW STAT IV 08/01/17 17:12 08/01/17 17:16 DC 08/01/17 17:41 4 MG Famotidine (Pepcid 20mg Iv Push) 20 mg ONE STAT IV 08/01/17 17:12 08/01/17 17:16 DC 08/01/17 17:42 20 MG Ondansetron HCl (Zofran Inj) 4 mg STK-MED ONCE .ROUTE 08/01/17 20:24 08/01/17 20:25 DC 08/01/17 20:26 4 MG Prochlorperazine Edisylate (Compazine Inj) 10 mg NOW STAT IV 08/01/17 21:01 08/01/17 21:02 DC 08/01/17 21:29 10 MG Al Hydroxide/Mg Hydroxide (Maalox Susp) 30 ml STK-MED ONCE .ROUTE 08/01/17 21:23 08/01/17 21:24 DC 08/01/17 21:28 30 ML Lidocaine HCl (Viscous Lidocaine 2% Soln) 20 ml STK-MED ONCE .ROUTE 08/01/17 21:23 08/01/17 21:24 DC 08/01/17 21:28 10 ML Ondansetron HCl (ZOFRAN ODT 4MG Home Pack) 1 homepack UD ONCE PO 08/01/17 22:30 08/01/17 22:31 DC 08/01/17 23:02 1 HOMEPACK ECG Per My Interpretation Indication: vomiting Rate (beats per minute): 76 Rhythm: normal sinus Findings: no acute ischemic change, other (normal axis) ED Course 1703: The patient was evaluated in room B2. A complete history and physical exam was performed. 2051: I updated the patient on her test results. 2208: On reassessment, the patient is resting comfortably. 2225: I reevaluated the patient. Discussed results and discharge instructions: She verbalized understanding and agreement. The patient is ready for discharge. Medical Decision I reviewed the patient's past medical history, medications, and the nursing notes as described above. Differential diagnosis: Etiologies such as gastroenteritis, food borne illness, infections, appendicitis , diverticulitis, inflammatory bowel disease, obstruction, GI bleed, biliary pathology, as well as others were entertained. The patient is a 57-year-old woman with a past medical history of gastric bypass who presents to emergency department with nausea and vomiting per hpi. Of note, the patient was seen in the ED 07/18 found to have elevated liver enzymes with AST 1200 and ALT 700s. Patient was checked to follow-up with her doctor for repeat LFTs but she did not do this because she could not get a ride. On arrival the patient is fatigued appearing and uncomfortable but no acute distress, afebrile stable vital signs. On exam is benign. Labs reassuring with resolution of the patient's prior AST and ALT elevations. CBC and lactate within normal limits. CT abdomen and pelvis with IV and oral contrast unremarkable. Patient feeling improved after IV fluids, Zofran, Pepcid , Compazine, GI cocktail. The patient reports she still has residual nausea she had no further vomiting in the emergency department. Unclear etiology to the patient's symptoms at this time although gastritis is possible. Plan for follow-up with the patient's PCP and GI. Findings and plan for follow-up reviewed with patient. Patient agreeable and d/c'd per discharge instructions. Medication Reconcilliation Current Medication List: was personally reviewed by me Blood Pressure Screening Patient's blood pressure: Elevated blood pressure Blood pressure disposition: Elevated BP felt to be situational Impression Primary Impression: Nausea & vomiting Additional Impression: Gastritis Scribe Attestation The scribe's documentation has been prepared under my direction and personally reviewed by me in its entirety. I confirm that the note above accurately reflects all work, treatment, procedures, and medical decision making performed by me. Departure Information Dispostion Home / Self-Care Prescriptions Ondasetron Odt (ZOFRAN ODT) 4 Mg Tab 4 MG SL Q6H for Nausea, #10 TAB Prov: Aries Guy M.D. 08/01/17 Famotidine (PEPCID) 20 Mg Tab 20 MG PO BID Y for GI Upset for 10 Days, #20 TAB Prov: Aries Guy M.D. 08/01/17 Referrals Lelo Ramirez M.D. (PCP) Rommel Champagne D.O. Forms HOME CARE DOCUMENTATION FORM, IMPORTANT VISIT INFORMATION Patient Instructions ED Gastritis, ED Nausea Vomiting, My [facility] Additional Instructions Please follow up with your primary care physician and GI, Dr. Champagne, in the next week for re-evaluation. The cause of your symptoms is unclear at this time but may be due to a gastritis /reflux. Otherwise, your exam, lab results, CT scan with IV and oral contrast did not show signs of an emergent condition at this time. Continue your current medications as prescribed. Add Pepcid as directed as needed for GI upset/additional acid reduction. Drink plenty of fluids to ensure hydration. Return to the emergency department for worsening symptoms as described in the accompanying instructions. Problem Qualifiers
[2017-08-01] MEDS ORDERED: OPTIRAY 320 IV PRN (17:30)
--- NOTE | 2017-08-01 17:40 | DIAGNOSTIC IMAGING REPORT ---
CHEST ONE VIEW PORTABLE HISTORY: 57 years-old Female ABDOMINAL PAIN/GI acute generalized abdominal pain COMPARISON: Chest radiograph 07/14/2017 TECHNIQUE: Portable AP view of the chest FINDINGS: Cardiac mediastinal and hilar silhouettes are within normal limits. There is no pneumothorax, pleural effusion, focal airspace consolidation or overt pulmonary edema. The bones of the chest appear grossly intact. IMPRESSION: No acute process. The above report was generated using voice recognition software. It may contain grammatical, syntax or spelling errors. Electronically signed by: Pierce Owen M.D. 08/01/2017 5:39 PM Dictated Date/Time: 08/01/2017 5:38 PM
[2017-08-01 17:46] LABS: BASO % 0.6 %; BASO ABS # 0.06 K/uL (0-0.2); EOS % 1.1 %; EOS ABS # 0.11 K/uL (0-0.5); HEMOGLOBIN 15.3 g/dL (12.0-16.0); IG# 0.02 K/uL (0.00-0.02); LYMPH % 24.5 %; LYMPH ABS # 2.34 K/uL (1.2-3.4); MEAN CELL VOLUME 93.2 fL (80-100); MEAN CORPUSCULAR HEMOGLOBIN 32.4 pg (25-34); MEAN CORPUSCULAR HGB CONC 34.8 g/dl (32-36); MEAN PLATELET VOLUME 9.1 fL (7.4-10.4); MONO % 12.3 %; MONO ABS # 1.18 K/uL (0.11-0.59); NEUT % 61.3 %; NEUT ABS # 5.86 K/uL (1.4-6.5); PLATELET COUNT 347 K/uL (130-400); RED CELL DISTRIBUTION WIDTH CV 14.7 % (11.5-14.5); RED CELL DISTRIBUTION WIDTH SD 50.3 fL (36.4-46.3); WHITE BLOOD COUNT 9.57 K/uL (4.8-10.8)
[2017-08-01 18:11] LABS: ALBUMIN 4.1 gm/dl (3.4-5.0); ALT/SGPT 41 U/L (12-78); AST/SGOT 20 U/L (15-37); BLOOD UREA NITROGEN 14 mg/dl (7-18); CALCIUM 9.4 mg/dl (8.5-10.1); CARBON DIOXIDE 24 mmol/L (21-32); CREATININE 0.84 mg/dl (0.60-1.20); GLUCOSE 93 mg/dl (70-99); LIPASE 250 U/L (73-393); POTASSIUM 3.4 mmol/L (3.5-5.1); SODIUM 139 mmol/L (136-145)
[2017-08-01 18:16] LABS: ALKALINE PHOSPHATASE 121 U/L (45-117); TOTAL PROTEIN 7.4 gm/dl (6.4-8.2)
[2017-08-01] MEDS ORDERED: ONDANSETRON INJ 2 MG/ML 2 ML VIAL ONE (20:24)
[2017-08-01] MEDS ORDERED: NURSING VERBAL MED ORDER ONE (20:30)
--- NOTE | 2017-08-01 20:39 | DIAGNOSTIC IMAGING REPORT ---
ABDOMEN AND PELVIS CT WITH IV AND ORAL CONTRAST CT DOSE: 316.40 mGy.cm HISTORY: Acute nausea and vomiting with history of gastric bypass n/v h/o gastric bypass TECHNIQUE: Multiaxial CT images of the abdomen and pelvis were performed following the use of intravenous and oral contrast. A dose lowering technique was utilized adhering to the principles of ALARA. COMPARISON STUDY: Pelvic CT 03/29/2017. FINDINGS: Lung bases are clear. No pneumatosis or pneumoperitoneum. Imaged inferior cardiac chambers are unremarkable. Trace pericardial effusion. Gallbladder is mildly distended. No cholelithiasis or CT evidence of acute cholecystitis. No intrahepatic biliary ductal dilation or focal hepatic mass lesion. Spleen, pancreas and left adrenal gland are within normal limits. 1.5 cm soft tissue attenuating nodule of the right adrenal gland is indeterminate. Kidneys, ureters and bladder are unremarkable. Prior hysterectomy. Air-filled vaginal cuff. No adnexal mass lesions. Mild mixed plaquing of the aorta without aneurysm. No bulky adenopathy. Postoperative changes from prior gastric bypass. Minimal fluid is noted within the excluded gastric limb. No inflammatory changes or obstruction. Large bowel is within normal limits with mild colonic diverticulosis without diverticulitis. The appendix is not definitively seen. Small fat filled supraumbilical abdominal wall hernia, diastases 2.8 cm. Nonobstructed small bowel and mesenteric fat extends into a periumbilical hernia, diastases 3.7 cm. Right hip arthroplasty. Mild multilevel facet arthrosis. 1.3 cm sclerotic focus of the right iliac wing is noted suggesting possible bone island, unchanged. Multilevel discogenic degenerative changes and facet arthrosis. Right hip arthroplasty in satisfactory alignment. IMPRESSION: 1. Prior gastric bypass. No bowel obstruction or focal bowel wall thickening. 2. Ventral abdominal wall hernias including a fat and small bowel filled periumbilical hernia. 3. Mild gallbladder distention without cholelithiasis or CT evidence of acute cholecystitis. 4. Prior hysterectomy. Electronically signed by: Pierce Owen M.D. 08/01/2017 8:37 PM Dictated Date/Time: 08/01/2017 8:28 PM
[2017-08-01] MEDS ORDERED: GI COCKTAIL PO STA (21:01)
[2017-08-01] MEDS ORDERED: PROCHLORPERAZINE 5 MG/ML 2 ML VIAL IV STA (21:01)
[2017-08-01] MEDS ORDERED: ALUMINUM/MAGNESIUM SUSP 30 ML UDC ONE (21:23)
[2017-08-01] MEDS ORDERED: LIDOCAINE HCL 2% VISC SOLN 20 ML UDC ONE (21:23)
[2017-08-01] MEDS ORDERED: FAMO20TA9 PO (22:15)
[2017-08-01] MEDS ORDERED: ONDA4TAB10 SL (22:21)
[2017-08-01] MEDS ORDERED: ONDANSETRON HOME PACK 4MG OD TAB PO ONE (22:30)
[2017-08-01 22:55] VITALS: BP 165/105; PULSE 82; O2SAT 96
== END 2017-08-01 23:02 | disposition home or self-care (01) ==
LOC: EDBD 16:46 → C.EDB 16:48
DX: K29.70 Gastritis, unspecified, without bleeding (principal); Z98.84 Bariatric surgery status; Z87.440 Personal history of urinary (tract) infections; F17.210 Nicotine dependence, cigarettes, uncomplicated; Z79.899 Other long term (current) drug therapy

== ENCOUNTER 2017-08-06 19:56 | Emergency (ER) | payer OTHER ==
[~2017-08-06] VITALS: Ht 170.2 cm; Wt 76.2 kg
[~2017-08-06 19:56] MED LIST changes: +FAMO20TA9 PO; +ONDA4TAB10 SL; -ONDA4TAB46 PO
[2017-08-06 19:59] VITALS: TEMP 36.6; Ht 170.2 cm; Wt 76.2 kg
[2017-08-06] MEDS ORDERED: GABAPENTIN 300 MG CAP PO STA (20:31)
[2017-08-06] MEDS ORDERED: NRN/300 PO (20:36)
[2017-08-06 21:04] VITALS: BP 143/100; PULSE 119; O2SAT 97
--- NOTE | 2017-08-06 21:24 | EMERGENCY ROOM VISIT NOTE ---
History First contact with patient: 20:15 Chief Complaint: BACK PAIN Stated Complaint: EXTREME BACK AND LEFT HIP PAIN History of Present Illness The patient is a 57 year old female who presents to the Emergency Room with complaints of lower back and left hip pain. Patient reports a history of chronic back pain and sciatica. She also reports a history of severe left hip arthritis. She had right hip replaced on 01/25/17. She is hopefully going to have the left hip replaced this fall. The patient reports that she was in pain management, but reports that they wanted to escalate her pain medication dosing , and add fentanyl. The patient reports that she did not want to do this, and elected to stop all opioid treatment. The patient reports that she has previously been treated with gabapentin for her pain. This was originally prescribed by her orthopedic surgeon. She called her family doctor's office today to see if they would prescribe her gabapentin, and reports that they wanted to treat her with steroids. The patient reports that she cannot take steroids or NSAIDs because of a prior history of gastric bypass. They refused to provide any further prescriptions until she came to the office for further discussion. Because it is Wednesday, the patient elected to come to the emergency department. She is requesting a prescription for gabapentin, refusing any opioids. She does not recall her gabapentin dosing and she has not taken it since last fall. She currently denies any lower extremity weakness, bladder/ bowel incontinence or saddle anesthesias. Review of Systems 10 system review was performed and was negative except for pertinent positives and negatives as indicated in history of present illness Past Medical/Surgical History Medical Problems: (1) Urinary tract infection Surgical Problems: (1) Gastric bypass status for obesity Family History No pertinent family history Social History Smoking Status: Current Every Day Smoker Alcohol Use: none Drug Use: none Marital Status: single Housing Status: lives with family Occupation Status: employed Current/Historical Medications Scheduled Citalopram Hydrobromide (Citalopram Hydrobromide), 20 MG PO DAILY Ferrous Sulfate (Slow Fe), 142 MG PO DAILY Gabapentin (Neurontin), 1 CAP PO BID Levothyroxine Sodium (Levothyroxine Sodium), 50 MCG PO DAILY Lisinopril (Prinivil), 30 MG PO DAILY Omeprazole (Prilosec), 20 MG PO BID Ondasetron Odt (Zofran Odt), 4 MG SL Q6H Pediatric Multiple Vitamin W/ (Flintstones Chewable), 1 TAB PO BID Scheduled PRN Famotidine (Pepcid), 20 MG PO BID PRN for GI Upset Physical Exam Vital Signs Date Time Temp Pulse Resp B/P (MAP) Pulse Ox O2 Delivery O2 Flow Rate FiO2 08/06/17 21:04 119 18 143/100 97 08/06/17 19:59 36.6 119 18 143/100 97 Room Air Physical Exam CONSTITUTIONAL: Healthy and well nourished. Alert and oriented X 3 with positive affect. Patient does not appear in any acute distress. HEENT: Normocephalic, atraumatic. Pupils equal, round and reactive. NECK: Full active range of motion without discomfort. GASTROINTESTINAL: Bowel sounds present in all quadrants. Soft and nontender to palpation. MUSCULOSKELETAL: Examination shows generalized discomfort to palpation through the lower lumbar region and left SI joint. Negative sitting straight leg raise. Mild discomfort with logroll. Pedal pulses are intact. No extremity edema noted. INTEGUMENTARY: No rash or other significant dermatologic conditions noted. NEUROLOGIC: Left foot and toes are sensory intact. Medical Decision & Procedures Medications Administered Medications (Trade) Dose Ordered Sig/Elsa Route Start Time Stop Time Status Last Admin Dose Admin Gabapentin (Neurontin Cap) 300 mg ONE STAT PO 08/06/17 20:31 08/06/17 20:33 DC 08/06/17 21:04 300 MG ED Course Patient history and physical exam were performed. Nurse's notes were reviewed. Vital signs were reviewed, showing an elevated blood pressure 143/100. Review of the [place] Prescription Drug Monitoring Program shows that the patient last filled a prescription for OxyContin 15 mg on 07/02/17. She also filled a prescription for oxycodone 10 mg on 06/09/17. I was unable to find any prior prescriptions through for gabapentin. The patient also indicates that the pharmacy she got it filled is now closed. The patient was offered gabapentin 300 mg in the emergency department for her pain. She will be provided a prescription for gabapentin 300 mg twice daily for the next 5 days. The patient was advised that the emergency department would not provide any further gabapentin or opioid prescriptions. She must discuss this further with her PCP and/or orthopedic surgeon. The patient was happy with plan of care , voiced understanding of all discharge instructions, and rated her discomfort a 5 out of 10 at the conclusion of my exam. The patient was also instructed to follow-up with her PCP for blood pressure recheck. Medical Decision History and physical exam findings are consistent with a mixture of sciatica and left hip osteoarthritis. Examination is not consistent with cauda equina syndrome. She denies any recent trauma to warrant imaging studies. [place] Drug Monitoring Program Search Results: patient reviewed within database, see additional documentation Medication Reconcilliation Current Medication List: was personally reviewed by me Blood Pressure Screening Patient's blood pressure: Elevated blood pressure Blood pressure disposition: Referred to PCP Impression Primary Impression: Left sided sciatica Additional Impressions: Osteoarthritis of left hip Elevated blood pressure reading Departure Information Dispostion Home / Self-Care Prescriptions Gabapentin (NEURONTIN) 300 Mg Cap 1 CAP PO BID for 5 Days, #10 CAP 0 Refills Prov: Donald Muse PA 08/06/17 Forms HOME CARE DOCUMENTATION FORM, IMPORTANT VISIT INFORMATION Patient Instructions [facility] Additional Instructions You have been prescribed gabapentin 300 mg twice daily for the next 3 days. You must receive any further prescriptions from your family doctor or orthopedic surgeon. The emergency department does not provide chronic pain management. Problem Qualifiers Additional Impressions: Osteoarthritis of left hip Osteoarthritis type: primary Qualified Codes: M16.12 - Unilateral primary osteoarthritis, left hip
== END 2017-08-06 21:04 | disposition home or self-care (01) ==
LOC: C.EDB 19:57 → C.EDD 21:04
DX: M16.12 Unilateral primary osteoarthritis, left hip (principal); G89.29 Other chronic pain; R03.0 Elevated blood-pressure reading, without diagnosis of hypertension; F17.200 Nicotine dependence, unspecified, uncomplicated; Z79.899 Other long term (current) drug therapy

== ENCOUNTER 2017-08-11 14:22 | Emergency (ER) | payer OTHER ==
[~2017-08-11] VITALS: Ht 170.2 cm; Wt 76.0 kg
[~2017-08-11 14:22] MED LIST changes: +NRN/300 PO
[2017-08-11 14:29] VITALS: TEMP 37; Ht 170.2 cm; Wt 76.0 kg
[2017-08-11] MEDS ORDERED: SODIUM CHLORIDE 0.9% 1000ML 1,000 ML IV STA (15:07)
--- NOTE | 2017-08-11 15:31 | EMERGENCY ROOM VISIT NOTE ---
History First contact with patient: 14:47 Chief Complaint: BLEEDING Stated Complaint: WAS GIVEN WRONG MEDS BY PCP BLOOD IN URINE History of Present Illness 57F who presents to the Emergency Room with complaints of hematuria starting this morning. Patient is very upset because she thinks that a one time dose of Prednisone taken yesterday has caused her benji red bleeding. Pt reports having kidney stones in the past, her stones were always associated with pain and she states that she doesn't have much if any flank pain today. She also denies fevers, denies vomiting, denies diarrhea. She does have abdominal pain in the epigastric region that also started this morning. Pt also has right knee pain because she got her foot stuck under her gas pedal - she is not concerned about it and states her pain has improved a lot from the previous day - she admits that the prednisone may have helped her knee pain. PMHx: Gastric Bypass, Gastric Ulcers. Meds: Synthroid, Wellbutrin, PPI, Zantac. 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 SHx: Lives in [place], 40pk year smoking history, trying to quit. Does not chew, denies other illicit drugs. Review of Systems See HPI for pertinent positives and negatives. A total of ten systems were reviewed and were otherwise negative. Constitutional: No fever, No chills Respiratory: No cough, No sputum, No wheezing, No shortness of breath, No dyspnea on exertion Cardiovascular: No chest pain Abdomen: + pain, No nausea, No vomiting, No diarrhea, No constipation Musculoskeletal: No joint pain, No swelling, No calf pain Genitourinary - Female: + urinary frequency, + hematuria, No dysuria Past Medical/Surgical History Medical Problems: (1) Urinary tract infection Surgical Problems: (1) Gastric bypass status for obesity Family History No pertinent family history Social History Smoking Status: Current Every Day Smoker Alcohol Use: none Drug Use: none Marital Status: single Housing Status: lives with family Occupation Status: employed Current/Historical Medications Scheduled Citalopram Hydrobromide (Citalopram Hydrobromide), 20 MG PO DAILY Ferrous Sulfate (Slow Fe), 142 MG PO DAILY Levothyroxine Sodium (Levothyroxine Sodium), 50 MCG PO DAILY Lisinopril (Prinivil), 30 MG PO DAILY Omeprazole (Prilosec), 20 MG PO BID Pediatric Multiple Vitamin W/ (Flintstones Chewable), 1 TAB PO BID Scheduled PRN Famotidine (Pepcid), 20 MG PO BID PRN for GI Upset Physical Exam Vital Signs Date Time Temp Pulse Resp B/P (MAP) Pulse Ox O2 Delivery O2 Flow Rate FiO2 08/11/17 16:27 100 16 170/89 95 Room Air 08/11/17 14:29 37.0 100 16 187/94 94 Room Air Physical Exam Gen: No acute distress. HEENT: Head - normocephalic and atraumatic. Pupils are equal, round, and reactive to light. Extraocular eye muscles are intact and sclera are anicteric. Nose - moist nasal mucosa without discharge. Mouth - moist buccal mucosa. Oropharynx is nonerythematous and there is no tonsillar exudate or edema noted. Neck: Supple; no JVD, nuchal rigidity, cervical lymphadenopathy, or auscultated bruits. Heart: Regular rate and rhythm. There is a normal S1 and S2 with no murmurs, clicks, or gallops appreciated. Lungs: Clear to auscultation bilaterally with no wheezes, rales, or rhonchi. Abdomen: Soft, completely nontender, nondistended, with good bowel sounds. There are no palpable pulsatile masses or hepatosplenomegaly. There is no guarding, rigidity, or rebound noted. There is Right Sided CVA Tenderness on exam. Extremities: No evidence of cyanosis, clubbing, or edema. There are easily palpable peripheral pulses. Neuro:The patient is awake and alert, oriented to day, time, and place. Muscle strength is 5/5 in all 4 extremities. The patient has equal teacher of the sight impaired strength and equal pedal push and pull. There are no cerebellar signs. Medical Decision & Procedures ER Provider Diagnostic Interpretation: ABDOMEN AND PELVIS CT WITHOUT CONTRAST CT DOSE: 919.30 mGycm HISTORY: Acute right flank pain with hematuria r/o kidney stoone R cva tenderness and hematuria TECHNIQUE: Multiaxial CT images of the abdomen and pelvis were performed without contrast. A dose lowering technique was utilized adhering to the principles of ALARA. COMPARISON STUDY: CT abdomen and pelvis 08/01/2017 FINDINGS: Minimal subsegmental bibasilar atelectasis. No pneumatosis or pneumoperitoneum identified. Imaged inferior cardiac chambers are unremarkable. Gallbladder, liver, spleen, pancreas and left adrenal gland are unremarkable. 1.5 cm low attenuating lesion of the right adrenal gland suggests adrenal adenoma. Kidneys are unremarkable without renal calculi, hydronephrosis or suspicious mass lesions. Urinary bladder is within normal limits. 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 Prior hysterectomy. No adnexal mass lesions. Atherosclerosis of the aorta without aneurysm. No bulky adenopathy. Prior gastric bypass. There is no bowel obstruction. No focal bowel wall thickening. The appendix is not definitively seen. No secondary signs of acute appendicitis. Small fat filled supraumbilical abdominal wall hernia, diastases of 2.8 cm. And mesenteric fat extends into the hernia. Mesenteric fat and nonobstructed bowel extends into a right-sided periumbilical hernia, diastases of 3.7 cm which is unchanged. Multilevel degenerative changes of the spine with facet arthropathy. Right hip arthroplasty with satisfactory alignment. IMPRESSION: 1. No acute intra-abdominal or intrapelvic abnormality identified, specifically no renal calculi or obstructive uropathy. 2. Prior gastric bypass. No bowel obstruction. 3. Unchanged ventral abdominal wall hernias as above. 4. Prior hysterectomy. Laboratory Results Test 08/11/17 15:30 08/11/17 16:25 Bedside Hemoglobin 14.6 g/dl (12.0-16.0) Bedside Hematocrit 43 % (37-47) Bedside Sodium 143 mEq/L (135-144) Bedside Potassium 3.2 mEq/L (3.3-5.0) Bedside Chloride 111 mEq/L (101-112) Bedside Total CO2 22 mEq/l (24-31) Anion Gap 14.0 mmol/L (16-25) Bedside Blood Urea Nitrogen 9 mg/dl (7-18) Bedside Creatinine 0.8 mg/dl (0.6-1.3) Bedside Glucose (other) 112 mg/dl (70-99) Bedside Ionized Calcium (Marguerite) 1.09 mmol/l (1.12-1.32) Urine Color ORANGE Urine Appearance CLEAR (CLEAR) Urine pH 5.5 (4.5-7.5) Urine Specific [place] 1.015 (1.000-1.030) Urine Protein NEG (NEG) Urine Glucose (UA) NEG (NEG) Urine Ketones NEG (NEG) Urine Occult Blood 2+ (NEG) Urine Nitrite NEG (NEG) Urine Bilirubin NEG (NEG) Urine Urobilinogen NEG (NEG) Urine Leukocyte Esterase NEG (NEG) Urine WBC (Auto) 1-5 /hpf (0-5) Urine RBC (Auto) 5-10 /hpf (0-4) Urine Hyaline Casts (Auto) 1-5 /lpf (0-5) Urine Epithelial Cells (Auto) 20-30 /lpf (0-5) Urine Bacteria (Auto) NEG (NEG) Medications Administered Medications (Trade) Dose Ordered Sig/Elsa Route Start Time Stop Time Status Last Admin Dose Admin Sodium Chloride 1,000 ml @ 999 mls/hr Q1H1M STAT IV 08/11/17 15:07 08/11/17 16:07 DC 08/11/17 15:30 999 MLS/HR Medical Decision The patient's care and disposition was discussed with Dr. Fernando, Attending ED Physician. This is a 57F with acute hematuria. Differential diagnosis include UTI, STI, bladder carcinoma, renal colic, renal pathology, aortic pathology, infections, inflammatory bowel disease, PUD, biliary pathology as well as others were entertained. Triage Nursing notes were reviewed. ED Course included an extensive history and physical exam, labs, imaging. iStat showed good renal function. Hemoglobin of 14. 3:00pm - Pt was seen and examined at bedside by Resident. 3:15pm - Pt was examined by Dr. Fernando with Resident. 3:30pm - Case was discussed and initial orders were placed. 4:40pm - Pt was updated on results. CT Scan showed a "1.5 cm low attenuating lesion of the right adrenal gland suggests adrenal adenoma". Spoke with Dr. Owen who stated that the adrenal adenoma was 1.2cm in 2011 and the nodule meets all criteria of a benign lesion and by guidelines does not need to be followed. The hematuria with a history of smoking is concerning. A follow up appointment with [facility] will be made. The pt was informed about the findings as listed above. All questions were answered. Return instructions were outlined and the patient was discharged in good condition. The patient was referred to PCP for recheck of the current condition. Head Trauma GCS Score: 15 Impression Primary Impression: Hematuria Departure Information Dispostion Home / Self-Care Condition GOOD Referrals Lelo Ramirez M.D. (PCP) Patient Instructions My [facility] Resident Involvement: Resident Care Provided Care Provided: Adult Hospital Medicine Problem Qualifiers Primary Impression: Hematuria Hematuria type: unspecified type Qualified Codes: R31.9 - Hematuria, unspecified
[2017-08-11 15:43] LABS: ISTAT CREATININE 0.8 mg/dl (0.6-1.3); ISTAT IONIZED CALCIUM 1.09 mmol/l (1.12-1.32); ISTAT POTASSIUM 3.2 mEq/L (3.3-5.0)
--- NOTE | 2017-08-11 17:06 | DIAGNOSTIC IMAGING REPORT ---
ABDOMEN AND PELVIS CT WITHOUT CONTRAST CT DOSE: 919.30 mGycm HISTORY: Acute right flank pain with hematuria r/o kidney stoone R cva tenderness and hematuria TECHNIQUE: Multiaxial CT images of the abdomen and pelvis were performed without contrast. A dose lowering technique was utilized adhering to the principles of ALARA. COMPARISON STUDY: CT abdomen and pelvis 08/01/2017 FINDINGS: Minimal subsegmental bibasilar atelectasis. No pneumatosis or pneumoperitoneum identified. Imaged inferior cardiac chambers are unremarkable. Gallbladder, liver, spleen, pancreas and left adrenal gland are unremarkable. 1.5 cm low attenuating lesion of the right adrenal gland suggests adrenal adenoma. Kidneys are unremarkable without renal calculi, hydronephrosis or suspicious mass lesions. Urinary bladder is within normal limits. 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 Prior hysterectomy. No adnexal mass lesions. Atherosclerosis of the aorta without aneurysm. No bulky adenopathy. Prior gastric bypass. There is no bowel obstruction. No focal bowel wall thickening. The appendix is not definitively seen. No secondary signs of acute appendicitis. Small fat filled supraumbilical abdominal wall hernia, diastases of 2.8 cm. And mesenteric fat extends into the hernia. Mesenteric fat and nonobstructed bowel extends into a right-sided periumbilical hernia, diastases of 3.7 cm which is unchanged. Multilevel degenerative changes of the spine with facet arthropathy. Right hip arthroplasty with satisfactory alignment. IMPRESSION: 1. No acute intra-abdominal or intrapelvic abnormality identified, specifically no renal calculi or obstructive uropathy. 2. Prior gastric bypass. No bowel obstruction. 3. Unchanged ventral abdominal wall hernias as above. 4. Prior hysterectomy. Electronically signed by: Pierce Owen M.D. 08/11/2017 5:05 PM Dictated Date/Time: 08/11/2017 4:59 PM
--- NOTE | 2017-08-11 17:29 | EMERGENCY ROOM VISIT NOTE ---
History Report prepared by Estela: Shawn Talavera Under the Supervision of: Dr. Portillo Fernando M.D. First contact with patient: 14:44 Chief Complaint: BLEEDING Stated Complaint: WAS GIVEN WRONG MEDS BY PCP BLOOD IN URINE History of Present Illness The patient is a 57 year old female who presents to the Emergency Room with complaints of intermittent hematuria beginning today. She also complains of nausea. She denies flank pain, vomiting, diarrhea, fevers, chills, or vaginal bleeding/discharge. The patient has a history of kidney stones. She states that she has had back pain but this is chronic. Her back pain occasionally radiates into her abdomen. The patient has a history of gastric bypass. She notes that she was recently given Prednisone for knee pain and is worried about gastric ulcers. She is a smoker. She is not currently sexually active. The patient was seen in the ED five days ago for sciatic back pain. She has a history of seeing pain management and was on Fentanyl. Pain management is trying to get her off of opioids currently. Patient was given a prescription for Gabapentin. Source of History: patient Onset: Today Quality: other (hematuria) Timing: intermittent Associated Symptoms: + nausea, + back pain (chronic), No fevers, No chills, No vomiting, No diarrhea Note: Negative: flank pain or vaginal bleeding/discharge. Review of Systems See HPI for pertinent positives and negatives. A total of ten systems were reviewed and were otherwise negative. Past Medical & Surgical Medical Problems: (1) Urinary tract infection Surgical Problems: (1) Gastric bypass status for obesity Family History No pertinent family history Social History Smoking Status: Current Every Day Smoker Alcohol Use: none Drug Use: none Marital Status: single Housing Status: lives with family Occupation Status: employed Current/Historical Medications Scheduled Citalopram Hydrobromide (Citalopram Hydrobromide), 20 MG PO DAILY Ferrous Sulfate (Slow Fe), 142 MG PO DAILY Levothyroxine Sodium (Levothyroxine Sodium), 50 MCG PO DAILY Lisinopril (Prinivil), 30 MG PO DAILY Omeprazole (Prilosec), 20 MG PO BID Pediatric Multiple Vitamin W/ (Flintstones Chewable), 1 TAB PO BID Scheduled PRN Famotidine (Pepcid), 20 MG PO BID PRN for GI Upset Allergies Coded Allergies: No Known Allergies (Verified , 08/11/17) Physical Exam Vital Signs Date Time Temp Pulse Resp B/P (MAP) Pulse Ox O2 Delivery O2 Flow Rate FiO2 08/11/17 17:39 89 18 183/127 98 08/11/17 16:27 100 16 170/89 95 Room Air 08/11/17 14:29 37.0 100 16 187/94 94 Room Air Physical Exam Physical Exam GENERAL: She is oriented to person, place, and time. She appears well- developed and well-nourished. She does not appear distressed. ____ HENT: Exam performed. Head: Normocephalic and atraumatic. Right Ear: External ear normal. No mastoid tenderness. Left Ear: External ear normal. No mastoid tenderness. Mouth/Throat: The oropharynx is clear, but dry. No trismus in the jaw. No dental abscesses or uvula swelling. No oropharyngeal exudate or tonsillar abscesses. ____ EYES: Conjunctivae and EOM are normal. Pupils are equal, round, and reactive to light. Right eye exhibits no discharge. Left eye exhibits no discharge. No scleral icterus. ____ NECK: Normal range of motion. Neck supple. No JVD present. No spinous process tenderness present. No carotid bruit present. No rigidity. No tracheal deviation and normal range of motion present. No Brudzinski's sign and no Kernig 's sign noted. ____ CV: Normal rate, regular rhythm, normal heart sounds and intact distal pulses. There is no peripheral edema. Palpable radial pulses bue. ____ PULM/CHEST: Effort normal and breath sounds normal. No respiratory distress. No stridor. She has no wheezes. She has no rales. Chest Wall: She exhibits no tenderness. ____ ABD: The abdomen is soft. Bowel sounds are normal. She has no distension. No mass is present. There is no tenderness. There is no rebound, no guarding, no Martin's sign and no tenderness at McBurney's point. Rovsig negative MUSC/SKEL: Normal range of motion. There is no peripheral edema, tenderness or deformity. Right CVA tenderness to palpation. LYMPH: No cervical adenopathy. ____ NEURO: She is alert and oriented to person, place, and time. She has normal strength. No cranial nerve deficit or sensory deficit. Coordination and gait normal. GCS eye subscore is 4. GCS verbal subscore is 5. GCS motor subscore is 6. Cerebellar tests wnl. ____ SKIN: Skin is warm and dry. She is not diaphoretic. ____ PSYCH: She has a normal mood and affect. Her behavior is normal. Judgment and thought content normal. ____ Medical Decision & Procedures ER Provider Diagnostic Interpretation: Radiology results as stated below per my review and radiologist interpretation: ABDOMEN AND PELVIS CT WITHOUT CONTRAST FINDINGS: Minimal subsegmental bibasilar atelectasis. No pneumatosis or pneumoperitoneum identified. Imaged inferior cardiac chambers are unremarkable. Gallbladder, liver, spleen, pancreas and left adrenal gland are unremarkable. 1.5 cm low attenuating lesion of the right adrenal gland suggests adrenal adenoma. Kidneys are unremarkable without renal calculi, hydronephrosis or suspicious mass lesions. Urinary bladder is within normal limits. 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 Prior hysterectomy. No adnexal mass lesions. Atherosclerosis of the aorta without aneurysm. No bulky adenopathy. Prior gastric bypass. There is no bowel obstruction. No focal bowel wall thickening. The appendix is not definitively seen. No secondary signs of acute appendicitis. Small fat filled supraumbilical abdominal wall hernia, diastases of 2.8 cm. And mesenteric fat extends into the hernia. Mesenteric fat and nonobstructed bowel extends into a right-sided periumbilical hernia, diastases of 3.7 cm which is unchanged. Multilevel degenerative changes of the spine with facet arthropathy. Right hip arthroplasty with satisfactory alignment. IMPRESSION: 1. No acute intra-abdominal or intrapelvic abnormality identified, specifically no renal calculi or obstructive uropathy. 2. Prior gastric bypass. No bowel obstruction. 3. Unchanged ventral abdominal wall hernias as above. 4. Prior hysterectomy. Electronically signed by: Pierce Owen M.D. 08/11/2017 5:05 PM Laboratory Results Test 08/11/17 15:30 08/11/17 16:25 Bedside Hemoglobin 14.6 g/dl (12.0-16.0) Bedside Hematocrit 43 % (37-47) Bedside Sodium 143 mEq/L (135-144) Bedside Potassium 3.2 mEq/L (3.3-5.0) Bedside Chloride 111 mEq/L (101-112) Bedside Total CO2 22 mEq/l (24-31) Anion Gap 14.0 mmol/L (16-25) Bedside Blood Urea Nitrogen 9 mg/dl (7-18) Bedside Creatinine 0.8 mg/dl (0.6-1.3) Bedside Glucose (other) 112 mg/dl (70-99) Bedside Ionized Calcium (Marguerite) 1.09 mmol/l (1.12-1.32) Urine Color ORANGE Urine Appearance CLEAR (CLEAR) Urine pH 5.5 (4.5-7.5) Urine Specific [place] 1.015 (1.000-1.030) Urine Protein NEG (NEG) Urine Glucose (UA) NEG (NEG) Urine Ketones NEG (NEG) Urine Occult Blood 2+ (NEG) Urine Nitrite NEG (NEG) Urine Bilirubin NEG (NEG) Urine Urobilinogen NEG (NEG) Urine Leukocyte Esterase NEG (NEG) Urine WBC (Auto) 1-5 /hpf (0-5) Urine RBC (Auto) 5-10 /hpf (0-4) Urine Hyaline Casts (Auto) 1-5 /lpf (0-5) Urine Epithelial Cells (Auto) 20-30 /lpf (0-5) Urine Bacteria (Auto) NEG (NEG) Laboratory results reviewed by me Medications Administered Medications (Trade) Dose Ordered Sig/Elsa Route Start Time Stop Time Status Last Admin Dose Admin Sodium Chloride 1,000 ml @ 999 mls/hr Q1H1M STAT IV 08/11/17 15:07 08/11/17 16:07 DC 08/11/17 15:30 999 MLS/HR ED Course 1450: The patient was evaluated in room B2. A complete history and physical exam was performed. 1507: Ordered Sodium Chloride 1000 ml @ 999 mls/hr IV. 1715: Patient's vital signs are stable. Serial abdominal exams show no tenderness on palpation. Labs within normal limits with exception of potassium of 3.2. Urine shows 2+ blood. CT abdomen showed no stone, and normal aorta. 1.5 cm right adrenal adenoma seen as well. Patient will follow up with urology. DISCHARGE - Plan of care discussed with patient and questions answered. The patient was given both verbal and printed discharge instructions. The patient verbalized understanding and ability to comply. The patient is to seek outpatient follow up as noted in the discharge instructions. The patient verbalized understanding and ability to comply. The patient is discharged in stable condition. The patient was instructed to return for worsening symptoms. Medical Decision Patient's vital signs are stable. Serial abdominal exams show no tenderness on palpation. Labs within normal limits with exception of potassium of 3.2. Urine shows 2+ blood. CT abdomen showed no stone, and normal aorta. 1.5 cm right adrenal adenoma seen as well. Patient will follow up with urology. DISCHARGE - Plan of care discussed with patient and questions answered. The patient was given both verbal and printed discharge instructions. The patient verbalized understanding and ability to comply. The patient is to seek outpatient follow up as noted in the discharge instructions. The patient verbalized understanding and ability to comply. The patient is discharged in stable condition. The patient was instructed to return for worsening symptoms. Medication Reconcilliation Current Medication List: was personally reviewed by me Blood Pressure Screening Patient's blood pressure: Elevated blood pressure Blood pressure disposition: Referred to PCP Impression Primary Impression: Hematuria Additional Impression: Adrenal adenoma Scribe Attestation The scribe's documentation has been prepared under my direction and personally reviewed by me in its entirety. I confirm that the note above accurately reflects all work, treatment, procedures, and medical decision making performed by me. The chart was completed utilizing [employer] Speech voice recognition software. Grammatical errors, random word insertions, pronoun errors, and incomplete sentences are an occasional consequence of this system due to software limitations, ambient noise, and hardware issues. Any formal questions or concerns about the content, text, or information contained within the body of this dictation should be directly addressed to the physician for clarification. Departure Information Dispostion Home / Self-Care Referrals Lelo Ramirez M.D. (PCP) Forms HOME CARE DOCUMENTATION FORM, IMPORTANT VISIT INFORMATION Patient Instructions Hematuria Poss Causes, Hematuria Urologic Causes , [facility] Health Problem Qualifiers Primary Impression: Hematuria Hematuria type: unspecified type Qualified Codes: R31.9 - Hematuria, unspecified Additional Impression: Adrenal adenoma Laterality: unspecified laterality Qualified Codes: D35.00 - Benign neoplasm of unspecified adrenal gland
[2017-08-11 17:39] VITALS: BP 183/127; PULSE 89; O2SAT 98
== END 2017-08-11 17:40 | disposition home or self-care (01) ==
LOC: C.EDB 14:23
DX: R31.9 Hematuria, unspecified (principal); Z87.442 Personal history of urinary calculi; R10.13 Epigastric pain; M25.561 Pain in right knee; Z95.1 Presence of aortocoronary bypass graft; Z79.899 Other long term (current) drug therapy; Z90.710 Acquired absence of both cervix and uterus; F17.210 Nicotine dependence, cigarettes, uncomplicated; Z87.440 Personal history of urinary (tract) infections